=== PATIENT | male | born 1965 | race Caucasian/White ===

== ENCOUNTER 2024-11-18 13:52 | Outpatient (AMB) | payer BC, SELFPAY ==
--- NOTE | 2024-11-18 14:18 | HO.NEPHOV_ITS ---
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 He has high BMI. He has been started on Mounjaro recently. His blood sugar is better with medication adjustment. He does not check his blood sugar and blood pressure very regularly. He has gained weight. He has history of drug use in the past but has not had any since 2014. He is on Jardiance.He denies taking excessive nonsteroidal anti-inflammatories. He is on ARB. He used to take NSAIDs . He does not have any flank pain, hematuria, froth or foam in the urine, epistaxis, orthostatic symptoms, nausea, vomiting, diarrhea, shortness of breath, paroxysmal nocturnal dyspnea, orthopnea, recurrent sinusitis, joint swellings or any other systemic symptoms. His recent serum creatinine has been 1.18 [facility] Medical History (Updated 11/18/24 @ 14:48 by Melvin Greenberg MD) Gaudencio's thyroiditis Fatty liver Liver abscess Portal vein thrombosis Tubular adenoma Abdominal aortic ectasia Abnormal LFTs (liver function tests) ROGER (obstructive sleep apnea) Hypertension Diabetes mellitus Surgical History (Updated 11/18/24 @ 14:20 by Latanya Wolf MA) History of appendectomy Family History (Updated 11/18/24 @ 14:19 by Latanya Wolf MA) Father Diabetes Dementia Social History (Updated 11/18/24 @ 14:19 by Latanya Wolf MA) Alcohol intake: former Patient Tobacco Use Status: Former Tobacco user Review of Systems Const All systems reviewed & are unremarkable except as noted in HPI and below Physical Exam Vital Signs: Last Vital Signs Pulse 84 11/18/24 14:21 BP 114/68 11/18/24 14:21 Pulse Ox 93 11/18/24 14:21 Oxygen Delivery Method Room Air 11/18/24 14:21 BMI result Body Mass Index 53.5 Const General: comfortable and no acute distress Orientation/consciousness: patient oriented x3 HEENT Head: Yes normocephalic Mouth: Normal oral and palatal mucosa present Eyes EOM: EOMs intact bilaterally Neck Neck: Yes supple Resp Auscultation: clear to auscultation bilaterally Cardio Jugular venous distension: no JVD Rate: regular rate GI Palpation (GI): Soft to palpation Auscultation: normal bowel sounds General: Yes no CVA tenderness Back/Spine/Pelvis Back: no CVA tenderness Skin General skin exam: no rashes or lesions noted Neuro General: patient oriented x3 and moves all extremities Extrem General: Yes no pedal edema Results Reviewed Nephrology Results: Sodium 135 mmol/L (135-145) 11/18/24 Potassium 4.3 mmol/L (3.3-5.1) 11/18/24 Chloride 97 mmol/L (96-108) 11/18/24 Carbon Dioxide 30 mmol/L (22-29) H 11/18/24 BUN 21 mg/dL (9-16) H 11/18/24 Creatinine 0.95 mg/dL (0.5-1.4) 11/18/24 Calcium 9.7 mg/dL (8.4-10.2) 11/18/24 Urine Creatinine 75.20 mg/dL 11/18/24 Protein/Creatinin Ratio 0.20 (<0.2) 11/18/24 Assessment & Plan Assessment & Plan (1) Hypertension: Code(s): I10 - Essential (primary) hypertension Category: Medical Qualifiers: Hypertension type: primary hypertension Qualified Code(s): I10 - Essential (primary) hypertension (2) CKD stage 3a, GFR 45-59 ml/min: Code(s): N18.31 - Chronic kidney disease, stage 3a Category: Medical (3) Diabetic nephropathy: Code(s): E11.21 - Type 2 diabetes mellitus with diabetic nephropathy Category: Medical Qualifiers: Diabetes mellitus type: type 2 Qualified Code(s): E11.21 - Type 2 diabetes mellitus with diabetic nephropathy Plan Kodi has CKD stage 3 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 Differential diagnosis includes includes secondary focal and segmental glomerulosclerosis. His urine output is good. He is on ARB and SGLT2 inhibitor. I ordered extensive workup. He may need a renal biopsy if he has significant proteinuria . I encouraged him to avoid nonsteroidal anti-inflammatories and maintain good hydration. I did not make any medication changes. Further management is pending evolving data. Answered all questions and follow-up appointment was given. Orders: Orders Creatinine 11/18/24 N18. - Chronic kidney disease, stage 3a, E11.21 - Type 2 diabetes mellitus with diabetic nephropathy, I10 - Essential (primary) hypertension Blood Urea Nitrogen 11/18/24 N18.31 - Chronic kidney disease, stage 3a, E11.21 - Type 2 diabetes mellitus with diabetic nephropathy, I10 - Essential (primary) hypertension Anti DNA DS Antibody 11/18/24. - Chronic kidney disease, stage 3a, E11.21 - Type 2 diabetes mellitus with diabetic nephropathy, I10 - Essential (primary) hypertension Myeloperoxidase Antibody 11/18/24. - Chronic kidney disease, stage 3a, E11.21 - Type 2 diabetes mellitus with diabetic nephropathy, I10 - Essential (primary) hypertension Complement C3 11/18/24. - Chronic kidney disease, stage 3a, E11.21 - Type 2 diabetes mellitus with diabetic nephropathy, I10 - Essential (primary) hypertension Immunofixation Pnl, Serum 11/18/24. - Chronic kidney disease, stage 3a, E11.21 - Type 2 diabetes mellitus with diabetic nephropathy, I10 - Essential (primary) hypertension Electrolytes 11/18/24. - Chronic kidney disease, stage 3a, E11.21 - Type 2 diabetes mellitus with diabetic nephropathy, I10 - Essential (primary) hypertension Calcium 11/18/24. - Chronic kidney disease, stage 3a, E11.21 - Type 2 diabetes mellitus with diabetic nephropathy, I10 - Essential (primary) hypertension Hepatitis B Surface Antibody 11/18/24. - Chronic kidney disease, stage 3a , E11.21 - Type 2 diabetes mellitus with diabetic nephropathy, I10 - Essential (primary) hypertension Hepatitis B Surface Antigen 11/18/24. - Chronic kidney disease, stage 3a, E11.21 - Type 2 diabetes mellitus with diabetic nephropathy, I10 - Essential (primary) hypertension Hepatitis B Core Antibody 11/18/24. - Chronic kidney disease, stage 3a, E11.21 - Type 2 diabetes mellitus with diabetic nephropathy, I10 - Essential (primary) hypertension Proteinase 3 PR3 Antibodies 11/18/24. - Chronic kidney disease, stage 3a, E11.21 - Type 2 diabetes mellitus with diabetic nephropathy, I10 - Essential (primary) hypertension Complement C4 11/18/24 N18.31 - Chronic kidney disease, stage 3a, E11. - Type 2 diabetes mellitus with diabetic nephropathy, I10 - Essential (primary) hypertension Phospholipase A2 Receptor Pnl 11/18/24 N18.31 - Chronic kidney disease, stage 3a, E11.21 - Type 2 diabetes mellitus with diabetic nephropathy, I10 - Essential (primary) hypertension Immunofixation, Random Urine 11/18/24 N18.31 - Chronic kidney disease, stage 3a, E11. - Type 2 diabetes mellitus with diabetic nephropathy, I10 - Essential (primary) hypertension Protein Creatinine Ratio, Ur 11/18/24 N18.31 - Chronic kidney disease, stage 3a, E11. - Type 2 diabetes mellitus with diabetic nephropathy, I10 - Essential (primary) hypertension Coding Level of Care Code New Pt Level 4 (90089) Diagnoses Primary hypertension I10 Hypertension type: primary hypertension CKD stage 3a, GFR 45-59 ml/min N18.31 Diabetic nephropathy associated with type 2 diabetes mellitus Diabetes mellitus type: type 2
[2024-11-18 14:21] VITALS: BP 114/68; PULSE 84; O2SAT 93; BMI 53.5
--- OUTSIDE RECORDS SUMMARY | 2024-11-18 16:57 | XMS_ITS | Encounter Summary ---
Author Organization [facility] Address [address] [place] [address] Care Team Providers Care Pulp Roller Name Role Phone Ramiro Horton DO Primary Care Provider [phone] Encounter Details Date Type Department Care Team (Late st Contact Info) Description 08/16/2024 Lab Requisition [facility] - Main Lab [address] [place] [address] [address] [place] [id number] Social History Tobacco Use Types Packs/Day Years Used Date Smoking Tobacco: Never Assessed Sex and Gender Information Value Date Recorded Sex Assigned at Not on file Legal Sex Male 11:01 AM EST Gender Identity Not on file Sexual Orientation Not on file documented as of this encounter Plan of Treatment Not on file documented as of this encounter Visit Diagnoses Not on filedocumented in this encounter Care Teams Pulp Roller Relationship Specialty Start Date End Date Ramiro Horton DO [address] [place] [address] PCP - General Internal Medicine 05/27/15 documented as of this encounter
--- OUTSIDE RECORDS SUMMARY | 2024-11-18 16:57 | XMS_ITS | Continuity of Care Document ---
Author Organization [facility] Address [address] [facility] [facility] [address] [place] [address] Phone [phone] Social History Type Date Description Comments Sex Unknown Medical Devices Description No Information Available Encounters Description No Information Available Assessments Description No Information Available Plan of Treatment No Information Available Functional Status Description No Information Available Mental Status Description No Information Available Referrals Description No Information Available
--- OUTSIDE RECORDS SUMMARY | 2024-11-18 16:57 | XMS_ITS | Clinical Summary ---
Author Organization [address] Address [address] [place] [phone] Phone Care Team Providers Care Retail Customer Service Specialist Name Role Phone Ramiro Horton DO Primary Care Provider [phone] Encounters Date Type Department Care Team Description 10/29/2024 11:22 AM EDT - 10/29/2024 11:59 PM EDT Hospital Encounter [facility] [address] [place] [address] Pain Discharge Disposition: Home or Self Care 10/29/2024 10:56 AM EDT - 10/29/2024 11:59 PM EDT Hospital Encounter [facility] [address] [place] [address] Pain Discharge Disposition: Home or Self Care from Last 3 Months Social History Tobacco Use Types Packs/Day Years Used Date Smoking Tobacco: Never Assessed Sex and Gender Information Value Date Recorded Sex Assigned at Not on file Legal Sex Male 11:01 AM EST Gender Identity Not on file Sexual Orientation Not on file Last Filed Vital Signs Vital Sign Reading Time Taken Comments Blood Pressure 130/81 02/20/2022 11:08 AM EDT Pulse - - Temperature - - Respiratory Rate - - Oxygen Saturation - - Inhaled Oxygen Concentration - - Weight 168 kg (370 lb) 02/20/2022 11:08 AM EDT Height 170.2 cm (5' 7 ) 02/20/2022 11:08 AM EDT Body Mass Index 57.95 02/20/2022 11:08 AM EDT Plan of Treatment Health Maintenance Due Date Last Done Comments Diabetes: Annual Foot Exam 1976 Diabetes: Annual Retina Eye Exam 1976 DTaP,Tdap,and Td Vaccines (1 - Tdap) 1985 Hepatitis B Vaccines (1 of 3 - 19+ 3-dose series) 1985 Pneumococcal Vaccine: 50+ Years (1 of 2 - PCV) 1985 Pneumococcal Vaccine: Pediatrics (0 to 5 Years) and At-Risk Patients (6 to 64 Years) (1 of 2 - PCV) 1985 Zoster Vaccines (1 of 2) 2016 Colorectal Cancer Screening: Colonoscopy 07/02/2022 Depression Screening 07/02/2022 HIV Screening 07/02/2022 Hepatitis C Screening 07/02/2022 Social Influencers of Health Screening 07/02/2022 COVID-19 Vaccine (3 - 2023-2 5 season) 2024 01/03/2021, 12/05/2020 Influenza Vaccine (Season Ended) 2025 Diabetes: Blood Sugar Contro l Test (HGBA1C) 05/10/2025 11/08/2024, 07/16/2024 Diabetes: Annual Urine Albumin-Creatinine Ratio (uACR) 11/08/2025 11/08/2024 Diabetes: Annual GFR (Glomerular Filtration Rate) 11/08/2025 11/08/2024, 07/16/2024 Hypertension/CHF/CAD Annual BMP Blood Test 11/08/2025 11/08/2024, 07/16/2024 Cholesterol Screening (Lipid Panel) 11/08/2029 11/08/2024 HIB Vaccines Aged Out No longer eligi ble based on patient's age to complete this topic HPV Vaccines Aged Out No longer eligi ble based on patient's age to complete this topic Hepatitis A Vaccines Aged Out No long er eligible based on patient's age to complete this topic IPV Vaccines Aged Out No longer eligi ble based on patient's age to complete this topic MMR Vaccines Aged Out No longer eligi ble based on patient's age to complete this topic Meningococcal ACWY Vaccine Aged Out N o longer eligible based on patient's age to complete this topic Meningococcal B Vaccine Aged Out No l onger eligible based on patient's age to complete this topic RSV Immunization Patients Under 20 months Aged Out No longer eligible b ased on patient's age to complete this topic Varicella Vaccines Aged Out No longer eligible based on patient's age to complete this topic Procedures Procedure Name Priority Date/Time Associated Diagnosis Comments CBC WITH AUTO DIFFERENTIAL Routine 11/08/2024 9:38 AM EDT Laboratory tests ordered as part of a complete physical exam (CPE) DM (diabetes mellitus) ([facility] V24, [facility] V28) Proteinuria HTN (hypertension) Fatty liver Gaudencio encephalopathy Hx of tobacco use, presenting hazards to health BMI 45.0-49.9, adult ([facility] V24, [facility] V28) MICROALBUMIN CREATININE URINE RATIO Routine 11/08/2024 9:38 AM EDT Laboratory tests ordered as part of a complete physical exam (CPE) DM (diabetes mellitus) ([facility] V24, [facility] V28) Proteinuria HTN (hypertension) Fatty liver Gaudencio encephalopathy Hx of tobacco use, presenting hazards to health BMI 45.0-49.9, adult ([facility] V24, [facility] V28) HEMOGLOBIN A1C Routine 11/08/2024 9:38 AM EDT Laboratory tests ordered as part of a complete physical exam (CPE) DM (diabetes mellitus) ([facility] V24, [facility] V28) Proteinuria HTN (hypertension) Fatty liver Gaudencio encephalopathy Hx of tobacco use, presenting hazards to health BMI 45.0-49.9, adult ([facility] V24, [facility] V28) CBC AND DIFFERENTIAL Routine 11/08/2024 9:38 AM EDT Laboratory tests ordered as part of a complete physical exam (CPE) DM (diabetes mellitus) ([facility] V24, [facility] V28) Proteinuria HTN (hypertension) Fatty liver Gaudencio encephalopathy Hx of tobacco use, presenting hazards to health BMI 45.0-49.9, adult ([facility] V24, [facility] V28) THYROID STIMULATING HORMONE Routine 11/08/2024 9:38 AM EDT Laboratory tests ordered as part of a complete physical exam (CPE) DM (diabetes mellitus) ([facility] V24, [facility] V28) Proteinuria HTN (hypertension) Fatty liver Gaudencio encephalopathy Hx of tobacco use, presenting hazards to health BMI 45.0-49.9, adult ([facility] V24, [facility] V28) PROSTATE SPECIFIC ANTIGEN SCREEN Routine 11/08/2024 9:38 AM EDT Laboratory tests ordered as part of a complete physical exam (CPE) DM (diabetes mellitus) ([facility] V24, [facility] V28) Proteinuria HTN (hypertension) Fatty liver Gaudencio encephalopathy Hx of tobacco use, presenting hazards to health BMI 45.0-49.9, adult ([facility] V24, [facility] V28) CREATINE KINASE Routine 11/08/2024 9:38 AM EDT Laboratory tests ordered as part of a complete physical exam (CPE) DM (diabetes mellitus) ([facility] V24, [facility] V28) Proteinuria HTN (hypertension) Fatty liver Gaudencio encephalopathy Hx of tobacco use, presenting hazards to health BMI 45.0-49.9, adult ([facility] V24, [facility] V28) ASPARTATE AMINOTRANSFERASE Routine 11/08/2024 9:38 AM EDT Laboratory tests ordered as part of a complete physical exam (CPE) DM (diabetes mellitus) ([facility] V24, [facility] V28) Proteinuria HTN (hypertension) Fatty liver Gaudencio encephalopathy Hx of tobacco use, presenting hazards to health BMI 45.0-49.9, adult ([facility] V24, [facility] V28) BASIC METABOLIC PANEL Routine 11/08/2024 9:38 AM EDT Laboratory tests ordered as part of a complete physical exam (CPE) DM (diabetes mellitus) ([facility] V24, [facility] V28) Proteinuria HTN (hypertension) Fatty liver Gaudencio encephalopathy Hx of tobacco use, presenting hazards to health BMI 45.0-49.9, adult ([facility] V24, [facility] V28) ALANINE AMINOTRANSFERASE Routine 9:38 AM EDT Laboratory tests ordered as part of a complete physical exam (CPE) DM (diabetes mellitus) ([facility] V24, [facility] V28) Proteinuria HTN (hypertension) Fatty liver Gaudencio encephalopathy Hx of tobacco use, presenting hazards to health BMI 45.0-49.9, adult ([facility] V24, [facility] V28) LIPID PANEL WITH REFLEX TO DIRECT LDL Routine 11/08/2024 9:38 AM EDT Laboratory tests ordered as part of a complete physical exam (CPE) DM (diabetes mellitus) ([facility] V24, [facility] V28) Proteinuria HTN (hypertension) Fatty liver Gaudencio encephalopathy Hx of tobacco use, presenting hazards to health BMI 45.0-49.9, adult ([facility] V24, [facility] V28) XR SHOULDER 2+ VIEWS LEFT Routine 10/29/2024 11:37 AM EDT Pain XR CHEST 2 VIEWS Routine 10/29/2024 11:3 7 AM EDT Pain from Last 3 Months Results * Prostate specific antigen screen (11/08/2024 9:38 AM EDT) PSA 0.86 0.00 - 4.00 ng/mL LAB CHEMISTRY METHOD 11/08/2024 2:51 PM EDT [facility] Blood Venous blood specimen / Unknown Venipuncture / Unknown 11/08/2024 9:38 AM EDT 11/08/2024 9:38 AM EDT Narrative [facility] - 11/08/2024 2:51 PM EDT The Siemens Advia Centaur Chemiluminescent Immunoassay is used. Results obtained with different assay methods or kits cannot be used interchangeably. Results cannot be interpreted as absolute evidence of the presence or absence of malignant disease. us [facility] LAB BLOOD ORDERABLES Final Resul t [facility] [address] [place] [address], * (ABNORMAL) Lipid panel with reflex to direct LDL (11/08/2024 9:38 AM EDT) Cholesterol 126 0 - 200 mg/dL LAB CHEMISTRY METHOD 11/08/2024 2:12 PM EDT [facility] Triglycerides 110 0 - 150 mg/dL LAB CHEMISTRY METHOD 11/08/2024 2:12 PM EDT [facility] HDL 38(L) >=40 mg/dL LAB CHEMISTRY METHOD 11/08/2024 2:12 PM EDT [facility] LDL Calculated 66 0 - 100 mg/dL LAB CHEMISTRY METHOD 11/08/2024 2:12 PM EDT [facility] VLDL Cholesterol Norberto 22 mg/dL LAB CHEMISTRY METHOD 11/08/2024 2:12 PM EDT [facility] Non HDL Chol. (LDL+VLDL) 88 <145 mg/dL LAB CHEMISTRY METHOD 11/08/2024 2:12 PM EDT [facility] Chol/HDL Ratio 3.3 0.0 - 4.4 LAB CHEMISTRY METHOD 11/08/2024 2:12 PM EDT [facility] Blood Venous blood specimen / Unknown Venipuncture / Unknown 11/08/2024 9:38 AM EDT 11/08/2024 9:38 AM EDT [facility] LAB BLOOD ORDERABLES Final Resul t [facility] [address] [place] [address], * (ABNORMAL) CBC auto differential (11/08/2024 9:38 AM EDT) WBC 13.5(H) 4.8 - 10.8 K/mcL LAB HEMETOLOGY METHOD 11/08/2024 11:40 AM EDT [facility] RBC 5.00 4.50 - 5.50 M/mcL LAB HEMETOLOGY METHOD 11/08/2024 11:40 AM EDT [facility] Hemoglobin 13.5 13.5 - 17.5 g/dL LAB HEMETOLOGY METHOD 11/08/2024 11:40 AM [facility] Hematocrit 41.9(L) 42.0 - 54.0 % LAB HEMETOLOGY METHOD 11/08/2024 11:40 AM [facility] MCV 84.1 79.0 - 98.0 FL LAB HEMETOLOGY METHOD 11/08/2024 11:40 AM [facility] MCH 27.1 27.0 - 32.0 pcg LAB HEMETOLOGY METHOD 11/08/2024 11:40 AM [facility] MCHC 32.2 32.0 - 37.0 g/dL LAB HEMETOLOGY METHOD 11/08/2024 11:40 AM [facility] RDW 13.8 11.0 - 15.0 % LAB HEMETOLOGY METHOD 11/08/2024 11:40 AM [facility] Platelets 406(H) 130 - 400 K/mcL LAB HEMETOLOGY METHOD 11/08/2024 11:40 AM [facility] MPV 9.2 7.0 - 11.0 FL LAB HEMETOLOGY METHOD 11/08/2024 11:40 AM [facility] NRBC 0.0 <1.0 % LAB HEMETOLOGY METHOD 11/08/2024 11:40 AM [facility] NRBC Absolute 0.00 <0.10 K/mcL LAB HEMETOLOGY METHOD 11/08/2024 11:40 AM [facility] Neutrophils Relative 73.8 % LAB HEMETOLOGY METHOD 11/08/2024 11:40 AM [facility] Lymphocytes Relative 17.6 % LAB HEMETOLOGY METHOD 11/08/2024 11:40 AM [facility] Monocytes Relative 5.9 % LAB HEMETOLOGY METHOD 11/08/2024 11:40 AM [facility] Eosinophils Relative 1.3 % LAB HEMETOLOGY METHOD 11/08/2024 11:40 AM EDT [facility] Basophils Relative 0.5 % LAB HEMETOLOGY METHOD 11/08/2024 11:40 AM T [facility] Immature Granulocytes Relative 0.9 % LAB HEMETOLOGY METHOD 11/08/2024 11:40 AM EDT [facility] Neutrophils Absolute 9.96(H) 1.50 - 7.00 K/mcL LAB HEMETOLOGY METHOD 11/08/2024 11:40 AM EDT [facility] Lymphocytes Absolute 2.38 1.00 - 5.00 K/mcL LAB HEMETOLOGY METHOD 11/08/2024 11:40 AM [facility] Monocytes Absolute 0.79 0.20 - 1.00 K/mcL LAB HEMETOLOGY METHOD 11/08/2024 11:40 AM EDT [facility] Eosinophils Absolute 0.18 0.00 - 0.50 K/mcL LAB HEMETOLOGY METHOD 11/08/2024 11:40 AM EDT [facility] Basophils Absolute 0.07 0.00 - 0.20 K/mcL LAB HEMETOLOGY METHOD 11/08/2024 11:40 AM [facility] Immature Granulocytes Absolute 0.12(H) 0.00 - 0.03 K/mcL LAB HEMETOLOGY METHOD 11/08/2024 11:40 AM EDT [facility] Blood Venous blood specimen / Unknown Venipuncture / Unknown 11/08/2024 9:38 AM EDT 11/08/2024 9:38 AM EDT us [facility] LAB BLOOD ORDERABLES Final Resul t [facility] [address] [place] [address], * (ABNORMAL) Microalbumin creatinine urine ratio (11/08/2024 9:38 AM EDT) [facility] Creatinine, Urine 146.0 mg/dL LAB CHEMISTRY METHOD 11/08/2024 1:48 PM EDT [facility] Microalb, Ur 111.0(H) 0.0 - 29.0 mg/L LAB CHEMISTRY METHOD 11/08/2024 1:48 PM EDT [facility] Microalb/Crea t Ratio 76(H) <30 mg/g creat LAB CHEMISTRY METHOD 11/08/2024 1:48 PM EDT [facility] Urine Urine specimen obtained by clean catch procedure / Unknown Non-blood Collection / Unknown 11/08/2024 9:38 AM EDT 11/08/2024 9:38 AM EDT [facility] LAB URINE ORDERABLES Final Resul t Performing Organization Address City/[facility]/ZIP Co de Phone Number [facility] [address] [place] [address], [place] [phone] * Alanine aminotransferase (11/08/2024 9:38 AM EDT) [facility] ALT (SGPT) 59 10 - 60 unit/L LAB CHEMISTRY METHOD 11/08/2024 1:49 PM EDT [facility] Blood Venous blood specimen / Unknown Venipuncture / Unknown 11/08/2024 9:38 AM EDT 11/08/2024 9:38 AM EDT [email or web address] LAB BLOOD ORDERABLES Final Resul t [facility] [address] [place] [address], [place] [phone] * Aspartate aminotransferase (11/08/2024 9:38 AM EDT) [facility] AST (SGOT) 23 10 - 42 unit/L LAB CHEMISTRY METHOD 11/08/2024 2:12 PM EDT [facility] Blood Venous blood specimen / Unknown Venipuncture / Unknown 11/08/2024 9:38 AM EDT 11/08/2024 9:38 AM EDT [facility] LAB BLOOD ORDERABLES Final Resul t Performing Organization Address [facility]/ZIP Co de Phone Number [facility] [address] [place] [address], [place] [phone] * Thyroid stimulating hormone (11/08/2024 9:38 AM EDT) TSH 3.26 0.40 - 4.00 mcIU/mL LAB CHEMISTRY METHOD 11/08/2024 2:51 PM EDT [facility] Blood Venous blood specimen / Unknown Venipuncture / Unknown 11/08/2024 9:38 AM EDT 11/08/2024 9:38 AM EDT [facility] LAB BLOOD ORDERABLES Final Resul t Performing Organization Address [facility] de Phone Number [facility] [address] [place] [address], [place] [phone] * (ABNORMAL) Hemoglobin A1c (11/08/2024 9:38 AM EDT) Hemoglobin A1C 9.3(H) <6.5 % LAB CHEMISTRY METHOD 11/08/2024 2:31 PM EDT [facility] Mean Bld Glu Estim. 220 mg/dL LAB CHEMISTRY METHOD 11/08/2024 2:31 PM EDT [facility] Blood Venous blood specimen / Unknown Venipuncture / Unknown 11/08/2024 9:38 AM EDT 11/08/2024 9:38 AM EDT [facility] [email or web address] LAB BLOOD ORDERABLES Final Resul t Performing Organization Address [facility]/ZIP Co de Phone Number [facility] [address] [place] [address], [place] [phone] * Creatine kinase (11/08/2024 9:38 AM EDT) Total CK 130 22 - 269 unit/L LAB CHEMISTRY METHOD 11/08/2024 2:12 PM EDT [facility] Blood Venous blood specimen / Unknown Venipuncture / Unknown 11/08/2024 9:38 AM EDT 11/08/2024 9:38 AM EDT [facility] LAB BLOOD ORDERABLES Final Resul t Performing Organization Address [facility] Co de Phone Number [facility] [address] [place] [address], [place] [phone] * (ABNORMAL) Basic metabolic panel (11/08/2024 9:38 AM EDT) [facility] Sodium 134 133 - 145 mmol/L LAB CHEMISTRY METHOD 11/08/2024 2:12 PM [facility] Potassium 4.1 3.5 - 5.5 mmol/L LAB CHEMISTRY METHOD 11/08/2024 2:12 PM [facility] Chloride 98 96 - 110 mmol/L LAB CHEMISTRY METHOD 11/08/2024 2:12 PM [facility] CO2 23 21 - 32 mmol/L LAB CHEMISTRY METHOD 11/08/2024 2:12 PM [facility] Anion Gap 13(H) 3 - 11 LAB CHEMISTRY METHOD 11/08/2024 2:12 PM [facility] Glucose 143(H) 70 - 100 mg/dL LAB CHEMISTRY METHOD 11/08/2024 2:12 PM [facility] BUN 25 5 - 25 mg/dL LAB CHEMISTRY METHOD 11/08/2024 2:12 PM [facility] Creatinine 1.01 0.70 - 1.30 mg/dL LAB CHEMISTRY METHOD 11/08/2024 2:12 PM EDT [facility] eGFR 86 >=60 mL/min/1. 73m2 LAB CHEMISTRY METHOD 11/08/2024 2:12 PM EDT [facility] Comment:Calculation based on the??Chronic Kidney Disease Epidemiology Collaboration (CKD-EPI) equation refit??without adjustment for race. BUN/Creatinine Ratio 24.8 LAB CHEMISTRY METHOD 11/08/2024 2:12 PM EDT [facility] Calcium 9.4 8.5 - 10.5 mg/dL LAB CHEMISTRY METHOD 11/08/2024 2:12 PM EDT [facility] Blood Venous blood specimen / Unknown Venipuncture / Unknown 11/08/2024 9:38 AM EDT 11/08/2024 9:38 AM EDT [facility] LAB BLOOD ORDERABLES Final Resul t [facility] [address] [place] [address], * XR Shoulder 2+ Views Left (10/29/2024 11:37 AM EDT) Anatomical Region Laterality Modality Upper Extremities, Shoulder Left Radi ographic Imaging 10/29/2024 11:5 6 AM EDT Impressions 10/29/2024 11:57 AM EDT No acute findings. ??Mild osteoarthritis of the acromioclavicular joint. Code 29270 -------- FINAL REPORT -------- Dictated By: Marcos Marquez Dictated Date: 10/29/2024 11:56 ET Assigned Physician: Marcos Marquez Reviewed and Electronically Signed By: Marcos Marquez Signed Date: 10/29/2024 11:57 ET Workstation ID: [id number] Transcribed By: Self Edit Transcribed Date: 10/29/2024 11:56 ET Narrative 10/29/2024 11:57 AM EDT HISTORY: The patient is a 59-year-old male with left shoulder pain. ??No history of trauma is provided. FINDINGS: AP, left posterior oblique, and transscapular views of the left shoulder are obtained. ??The study demonstrates no fracture or dislocation. ??There is narrowing of the acromioclavicular joint with marginal osteophytes consistent with mild osteoarthritis. ??There is no arthritic change of the glenohumeral joint. ??No soft tissue and mildly is seen. Procedure Note Marcos Marquez MD - 10/29/2024 HISTORY: The patient is a 59-year-old male with left shoulder pain. Nohistory of trauma is provided. FINDINGS: AP, left posterior oblique, and transscapular views of the leftshoulder are obtained. The study demonstrates no fracture or dislocation.There is narrowing of the acromioclavicular joint with marginalosteophytes consistent with mild osteoarthritis. There is no arthriticchange of the glenohumeral joint. No soft tissue and mildly is seen. IMPRESSION: No acute findings. Mild osteoarthritis of the acromioclavicular joint. Code 55755 -------- FINAL REPORT -------- Dictated By: Marcos Marquez Dictated Date: 10/29/2024 11:56 ET Assigned Physician: Marcos Marquez Reviewed and Electronically Signed By: Marcos Marquez Signed Date: 10/29/2024 11:57 ET Workstation ID: [id number] Transcribed By: Self Edit Transcribed Date: 10/29/2024 11:56 ET us Ramiro Horton DO IMG XR PROCEDURES Final Resul t * XR Chest 2 Views (10/29/2024 11:37 AM EDT) Anatomical Region Laterality Modality Body Radiographic [place] ging 10/29/2024 11:5 7 AM EDT Impressions 10/29/2024 11:58 AM EDT No acute pulmonary disease. Code 49923 -------- FINAL REPORT -------- Dictated By: Marcos Marquez Dictated Date: 10/29/2024 11:57 ET Assigned Physician: Marcos Marquez Reviewed and Electronically Signed By: Marcos Marquez Signed Date: 10/29/2024 11:58 ET Workstation ID: [id number] Transcribed By: Self Edit Transcribed Date: 10/29/2024 11:57 ET Narrative 10/29/2024 11:58 AM EDT HISTORY: The patient is a 59-year-old male with persistent cough. FINDINGS: PA and lateral radiographs of the chest demonstrate mild degenerative changes of the thoracic spine. ??The cardiac silhouette is within normal limits. ??The aortic knob is calcified. ??The lungs and costophrenic angles are clear. ??Interstitial prominence seen on the prior study of 05/27/2015 has resolved. Procedure Note Marcos Marquez MD - 10/29/2024 HISTORY: The patient is a 59-year-old male with persistent cough. FINDINGS: PA and lateral radiographs of the chest demonstrate milddegenerative changes of the thoracic spine. The cardiac silhouette iswithin normal limits. The aortic knob is calcified. The lungs andcostophrenic angles are clear. Interstitial prominence seen on the priorstudy of 05/27/2015 has resolved. IMPRESSION: No acute pulmonary disease. Code 63329 -------- FINAL REPORT -------- Dictated By: Marcos Marquez Dictated Date: 10/29/2024 11:57 ET Assigned Physician: Marcos Marquez Reviewed and Electronically Signed By: Marcos Marquez Signed Date: 10/29/2024 11:58 ET Workstation ID: [id number] Transcribed By: Self Edit Transcribed Date: 10/29/2024 11:57 ET us Ramiro Horton DO IMG XR PROCEDURES Final Resul t from Last 3 Months Insurance [facility] Care Teams Retail Customer Service Specialist Relationship Specialty Start Date End Date Ramiro Horton DO [address] [place] [phone] PCP - General Internal Medicine 05/27/15
== END 2024-11-18 14:56 | disposition home or self-care (01) ==
LOC: HO.HKAS 13:53
PROVIDERS: Visit Provider Internal Medicine Nephrology
DX: I10 Essential (primary) hypertension (principal); N18.31 Chronic kidney disease, stage 3a; E11.21 Type 2 diabetes mellitus with diabetic nephropathy
CPT/HCPCS: 99204

== ENCOUNTER 2024-11-18 13:52 | Outpatient (REF) | payer BC, SELFPAY ==
--- OUTSIDE RECORDS SUMMARY | 2024-11-18 17:49 | XMS_ITS | Clinical Summary ---
Author Organization [address] Address [address] [place] [phone] Phone Care Team Providers Care Heat Engineering Teacher Name Role Phone Ramiro Horton DO Primary Care Provider [phone] Encounters Date Type Department Care Team Description 10/29/2024 11:22 AM EDT - 10/29/2024 11:59 PM EDT Hospital Encounter [facility] Xray [address] [place] [address] Pain Discharge Disposition: Home or Self Care 10/29/2024 10:56 AM EDT - 10/29/2024 11:59 PM EDT Hospital Encounter [facility] Xray [address] [place] [address] Pain Discharge Disposition: Home or Self Care [...] complete physical exam (CPE) DM (diabetes mellitus) ([facility] V24, [facility] V28) Proteinuria HTN (hypertension) Fatty liver Gaudencio encephalopathy Hx of tobacco use, presenting hazards to health BMI 45.0-49.9, adult ([facility] V24, [facility] V28) MICROALBUMIN CREATININE URINE RATIO Routine 11/08/2024 9:38 AM EDT Laboratory tests ordered as part of a complete physical exam (CPE) DM (diabetes mellitus) ([facility] V24, [facility] V28) Proteinuria HTN (hypertension) Fatty liver Gaudencio encephalopathy Hx of tobacco use, presenting hazards to health BMI 45.0-49.9, adult ([facility] V24, [facility] V28) HEMOGLOBIN A1C Routine 11/08/2024 9:38 AM EDT Laboratory tests ordered as part of a complete physical exam (CPE) DM (diabetes mellitus) ([facility] V24, [facility] V28) Proteinuria HTN (hypertension) Fatty liver Gaudencio encephalopathy Hx of tobacco use, presenting hazards to health BMI 45.0-49.9, adult ([facility] V24, [facility] V28) CBC AND DIFFERENTIAL Routine 11/08/2024 9:38 AM EDT Laboratory tests ordered as part of a complete physical exam (CPE) DM (diabetes mellitus) ([facility] V24, [facility] V28) Proteinuria HTN (hypertension) Fatty liver Gaudencio encephalopathy Hx of tobacco use, presenting hazards to health BMI 45.0-49.9, adult ([facility] V24, [facility] V28) THYROID STIMULATING HORMONE Routine 11/08/2024 9:38 AM EDT Laboratory tests ordered as part of a complete physical exam (CPE) DM (diabetes mellitus) ([facility] V24, [facility] V28) Proteinuria HTN (hypertension) Fatty liver Gaudencio encephalopathy Hx of tobacco use, presenting hazards to health BMI 45.0-49.9, adult ([facility] V24, [facility] V28) PROSTATE SPECIFIC ANTIGEN SCREEN Routine 11/08/2024 9:38 AM EDT Laboratory tests ordered as part of a complete physical exam (CPE) DM (diabetes mellitus) ([facility] V24, [facility] V28) Proteinuria HTN (hypertension) Fatty liver Gaudencio encephalopathy Hx of tobacco use, presenting hazards to health BMI 45.0-49.9, adult ([facility] V24, [facility] V28) CREATINE KINASE Routine 11/08/2024 9:38 AM EDT Laboratory tests ordered as part of a complete physical exam (CPE) DM (diabetes mellitus) ([facility] V24, [facility] V28) Proteinuria HTN (hypertension) Fatty liver Gaudencio encephalopathy Hx of tobacco use, presenting hazards to health BMI 45.0-49.9, adult ([facility] V24, [facility] V28) ASPARTATE AMINOTRANSFERASE Routine 11/08/2024 9:38 AM EDT Laboratory tests ordered as part of a complete physical exam (CPE) DM (diabetes mellitus) ([facility] V24, [facility] V28) Proteinuria HTN (hypertension) Fatty liver Gaudencio encephalopathy Hx of tobacco use, presenting hazards to health BMI 45.0-49.9, adult ([facility] V24, [facility] V28) BASIC METABOLIC PANEL Routine 11/08/2024 9:38 AM EDT Laboratory tests ordered as part of a complete physical exam (CPE) DM (diabetes mellitus) ([facility] V24, [facility] V28) Proteinuria HTN (hypertension) Fatty liver Gaudencio encephalopathy Hx of tobacco use, presenting hazards to health BMI 45.0-49.9, adult ([facility] V24, [facility] V28) ALANINE AMINOTRANSFERASE Routine 9:38 AM EDT Laboratory tests ordered as part of a complete physical exam (CPE) DM (diabetes mellitus) ([facility] V24, [facility] V28) Proteinuria HTN (hypertension) Fatty liver Gaudencio encephalopathy Hx of tobacco use, presenting hazards to health BMI 45.0-49.9, adult ([facility] V24, [facility] V28) LIPID PANEL WITH REFLEX TO DIRECT LDL Routine 11/08/2024 9:38 AM EDT Laboratory tests ordered as part of a complete physical exam (CPE) DM (diabetes mellitus) ([facility] V24, [facility] V28) Proteinuria HTN (hypertension) Fatty liver Gaudencio encephalopathy Hx of tobacco use, presenting hazards to health BMI 45.0-49.9, adult ([facility] V24, [facility] V28) XR SHOULDER 2+ VIEWS LEFT Routine 10/29/2024 11:37 AM EDT Pain XR CHEST 2 VIEWS Routine 10/29/2024 11:3 7 AM EDT Pain from Last 3 Months Results * Prostate specific antigen screen (11/08/2024 9:38 AM EDT) PSA 0.86 0.00 - 4.00 ng/mL LAB CHEMISTRY METHOD 11/08/2024 2:51 PM EDT [facility] Blood Venous blood specimen / Unknown Venipuncture / Unknown 11/08/2024 9:38 AM EDT 11/08/2024 9:38 AM EDT Narrative [facility] - 11/08/2024 2:51 PM EDT The Siemens Advia Centaur Chemiluminescent Immunoassay is used. Results obtained with different assay methods or kits cannot be used interchangeably. Results cannot be interpreted as absolute evidence of the presence or absence of malignant disease. us [facility] LAB BLOOD ORDERABLES Final Resul t [facility] [address] [place] [address], * (ABNORMAL) Lipid panel with reflex to direct LDL (11/08/2024 9:38 AM EDT) Cholesterol 126 0 - 200 mg/dL LAB CHEMISTRY METHOD 11/08/2024 2:12 PM EDT [facility] Triglycerides 110 0 - 150 mg/dL LAB CHEMISTRY METHOD 11/08/2024 2:12 PM EDT [facility] HDL 38(L) >=40 mg/dL LAB CHEMISTRY METHOD 11/08/2024 2:12 PM EDT [facility] LDL Calculated 66 0 - 100 mg/dL LAB CHEMISTRY METHOD 11/08/2024 2:12 PM EDT [facility] VLDL Cholesterol Norberto 22 mg/dL LAB CHEMISTRY METHOD 11/08/2024 2:12 PM EDT [facility] Non HDL Chol. (LDL+VLDL) 88 <145 mg/dL LAB CHEMISTRY METHOD 11/08/2024 2:12 PM EDT [facility] Chol/HDL Ratio 3.3 0.0 - 4.4 LAB CHEMISTRY METHOD 11/08/2024 2:12 PM EDT [facility] Blood Venous blood specimen / Unknown Venipuncture / Unknown 11/08/2024 9:38 AM EDT 11/08/2024 9:38 AM EDT [facility] LAB BLOOD ORDERABLES Final Resul t [facility] [address] [place] [address], * (ABNORMAL) CBC auto differential (11/08/2024 9:38 AM EDT) WBC 13.5(H) 4.8 - 10.8 K/mcL LAB HEMETOLOGY METHOD 11/08/2024 11:40 AM EDT [facility] RBC 5.00 4.50 - 5.50 M/mcL LAB HEMETOLOGY METHOD 11/08/2024 11:40 AM EDT [facility] Hemoglobin 13.5 13.5 - 17.5 g/dL LAB HEMETOLOGY METHOD 11/08/2024 11:40 AM [facility] Hematocrit 41.9(L) 42.0 - 54.0 % LAB HEMETOLOGY METHOD 11/08/2024 11:40 AM [facility] MCV 84.1 79.0 - 98.0 FL LAB HEMETOLOGY METHOD 11/08/2024 11:40 AM [facility] MCH 27.1 27.0 - 32.0 pcg LAB HEMETOLOGY METHOD 11/08/2024 11:40 AM [facility] MCHC 32.2 32.0 - 37.0 g/dL LAB HEMETOLOGY METHOD 11/08/2024 11:40 AM [facility] RDW 13.8 11.0 - 15.0 % LAB HEMETOLOGY METHOD 11/08/2024 11:40 AM [facility] Platelets 406(H) 130 - 400 K/mcL LAB HEMETOLOGY METHOD 11/08/2024 11:40 AM [facility] MPV 9.2 7.0 - 11.0 FL LAB HEMETOLOGY METHOD 11/08/2024 11:40 AM [facility] NRBC 0.0 <1.0 % LAB HEMETOLOGY METHOD 11/08/2024 11:40 AM [facility] NRBC Absolute 0.00 <0.10 K/mcL LAB HEMETOLOGY METHOD 11/08/2024 11:40 AM [facility] Neutrophils Relative 73.8 % LAB HEMETOLOGY METHOD 11/08/2024 11:40 AM [facility] Lymphocytes Relative 17.6 % LAB HEMETOLOGY METHOD 11/08/2024 11:40 AM [facility] Monocytes Relative 5.9 % LAB HEMETOLOGY METHOD 11/08/2024 11:40 AM [facility] Eosinophils Relative 1.3 % LAB HEMETOLOGY METHOD 11/08/2024 11:40 AM EDT [facility] Basophils Relative 0.5 % LAB HEMETOLOGY METHOD 11/08/2024 11:40 AM T [facility] Immature Granulocytes Relative 0.9 % LAB HEMETOLOGY METHOD 11/08/2024 11:40 AM EDT [facility] Neutrophils Absolute 9.96(H) 1.50 - 7.00 K/mcL LAB HEMETOLOGY METHOD 11/08/2024 11:40 AM EDT [facility] Lymphocytes Absolute 2.38 1.00 - 5.00 K/mcL LAB HEMETOLOGY METHOD 11/08/2024 11:40 AM [facility] Monocytes Absolute 0.79 0.20 - 1.00 K/mcL LAB HEMETOLOGY METHOD 11/08/2024 11:40 AM EDT [facility] Eosinophils Absolute 0.18 0.00 - 0.50 K/mcL LAB HEMETOLOGY METHOD 11/08/2024 11:40 AM EDT [facility] Basophils Absolute 0.07 0.00 - 0.20 K/mcL LAB HEMETOLOGY METHOD 11/08/2024 11:40 AM [facility] Immature Granulocytes Absolute 0.12(H) 0.00 - 0.03 K/mcL LAB HEMETOLOGY METHOD 11/08/2024 11:40 AM EDT [facility] Blood Venous blood specimen / Unknown Venipuncture / Unknown 11/08/2024 9:38 AM EDT 11/08/2024 9:38 AM EDT us [facility] LAB BLOOD ORDERABLES Final Resul t [facility] [address] [place] [address], * (ABNORMAL) Microalbumin creatinine urine ratio (11/08/2024 9:38 AM EDT) [facility] Creatinine, Urine 146.0 mg/dL LAB CHEMISTRY METHOD 11/08/2024 1:48 PM EDT [facility] Microalb, Ur 111.0(H) 0.0 - 29.0 mg/L LAB CHEMISTRY METHOD 11/08/2024 1:48 PM EDT [facility] Microalb/Crea t Ratio 76(H) <30 mg/g creat LAB CHEMISTRY METHOD 11/08/2024 1:48 PM EDT [facility] Urine Urine specimen obtained by clean catch procedure / Unknown Non-blood Collection / Unknown 11/08/2024 9:38 AM EDT 11/08/2024 9:38 AM EDT [employer] LAB URINE ORDERABLES Final Resul t Performing Organization Address City/[facility]/ZIP Co de Phone Number [facility] [address] [place] [address], [place] [phone] * Alanine aminotransferase (11/08/2024 9:38 AM EDT) [facility] ALT (SGPT) 59 10 - 60 unit/L LAB CHEMISTRY METHOD 11/08/2024 1:49 PM EDT [facility] Blood Venous blood specimen / Unknown Venipuncture / Unknown 11/08/2024 9:38 AM EDT 11/08/2024 9:38 AM EDT [employer] LAB BLOOD ORDERABLES Final Resul t [facility] [address] [place] [address], [place] [phone] * Aspartate aminotransferase (11/08/2024 9:38 AM EDT) [facility] AST (SGOT) 23 10 - 42 unit/L LAB CHEMISTRY METHOD 11/08/2024 2:12 PM EDT [facility] Blood Venous blood specimen / Unknown Venipuncture / Unknown 11/08/2024 9:38 AM EDT 11/08/2024 9:38 AM EDT [facility] LAB BLOOD ORDERABLES Final Resul t Performing Organization Address [facility]/ZIP Co de Phone Number [facility] [address] [place] [address], [place] [phone] * Thyroid stimulating hormone (11/08/2024 9:38 AM EDT) TSH 3.26 0.40 - 4.00 mcIU/mL LAB CHEMISTRY METHOD 11/08/2024 2:51 PM EDT [facility] Blood Venous blood specimen / Unknown Venipuncture / Unknown 11/08/2024 9:38 AM EDT 11/08/2024 9:38 AM EDT [facility] LAB BLOOD ORDERABLES Final Resul t Performing Organization Address [facility] de Phone Number [facility] [address] [place] [address], [place] [phone] * (ABNORMAL) Hemoglobin A1c (11/08/2024 9:38 AM EDT) Hemoglobin A1C 9.3(H) <6.5 % LAB CHEMISTRY METHOD 11/08/2024 2:31 PM EDT [facility] Mean Bld Glu Estim. 220 mg/dL LAB CHEMISTRY METHOD 11/08/2024 2:31 PM EDT [facility] Blood Venous blood specimen / Unknown Venipuncture / Unknown 11/08/2024 9:38 AM EDT 11/08/2024 9:38 AM EDT [facility] [employer] LAB BLOOD ORDERABLES Final Resul t Performing Organization Address [facility]/ZIP Co de Phone Number [facility] [address] [place] [address], [place] [phone] * Creatine kinase (11/08/2024 9:38 AM EDT) Total CK 130 22 - 269 unit/L LAB CHEMISTRY METHOD 11/08/2024 2:12 PM EDT [facility] Blood Venous blood specimen / Unknown Venipuncture / Unknown 11/08/2024 9:38 AM EDT 11/08/2024 9:38 AM EDT [facility] LAB BLOOD ORDERABLES Final Resul t Performing Organization Address [facility]/[employer] Co de Phone Number [facility] [address] [place] [address], [place] [phone] * (ABNORMAL) Basic metabolic panel (11/08/2024 9:38 AM EDT) [facility] Sodium 134 133 - 145 mmol/L LAB CHEMISTRY METHOD 11/08/2024 2:12 PM [facility] Potassium 4.1 3.5 - 5.5 mmol/L LAB CHEMISTRY METHOD 11/08/2024 2:12 PM [facility] Chloride 98 96 - 110 mmol/L LAB CHEMISTRY METHOD 11/08/2024 2:12 PM [facility] CO2 23 21 - 32 mmol/L LAB CHEMISTRY METHOD 11/08/2024 2:12 PM [facility] Anion Gap 13(H) 3 - 11 LAB CHEMISTRY METHOD 11/08/2024 2:12 PM [facility] Glucose 143(H) 70 - 100 mg/dL LAB CHEMISTRY METHOD 11/08/2024 2:12 PM [facility] BUN 25 5 - 25 mg/dL LAB CHEMISTRY METHOD 11/08/2024 2:12 PM [facility] Creatinine 1.01 0.70 - 1.30 mg/dL LAB CHEMISTRY METHOD 11/08/2024 2:12 PM EDT [facility] eGFR 86 >=60 mL/min/1. 73m2 LAB CHEMISTRY METHOD 11/08/2024 2:12 PM EDT [facility] Comment:Calculation based on the??Chronic Kidney Disease Epidemiology Collaboration (CKD-EPI) equation refit??without adjustment for race. BUN/Creatinine Ratio 24.8 LAB CHEMISTRY METHOD 11/08/2024 2:12 PM EDT [facility] Calcium 9.4 8.5 - 10.5 mg/dL LAB CHEMISTRY METHOD 11/08/2024 2:12 PM EDT [facility] Blood Venous blood specimen / Unknown Venipuncture / Unknown 11/08/2024 9:38 AM EDT 11/08/2024 9:38 AM EDT [facility] LAB BLOOD ORDERABLES Final Resul t [facility] [address] [place] [address], * XR Shoulder 2+ Views Left (10/29/2024 11:37 AM EDT) Anatomical Region Laterality Modality Upper Extremities, Shoulder Left Radi ographic Imaging 10/29/2024 11:5 6 AM EDT Impressions 10/29/2024 11:57 AM EDT No acute findings. ??Mild osteoarthritis of the acromioclavicular joint. Code 21875 -------- FINAL REPORT -------- Dictated By: Marcos Marquez Dictated Date: 10/29/2024 11:56 ET Assigned Physician: Marcos Marquez Reviewed and Electronically Signed By: Marcos Marquez Signed Date: 10/29/2024 11:57 ET Workstation ID: [id number] Transcribed By: Self Edit Transcribed Date: 10/29/2024 [...] Mild osteoarthritis of the acromioclavicular joint. Code 98048 -------- FINAL REPORT -------- Dictated By: Marcos Marquez Dictated Date: 10/29/2024 11:56 ET Assigned Physician: Marcos Marquez Reviewed and Electronically Signed By: Marcos Marquez Signed Date: 10/29/2024 11:57 ET Workstation ID: [id number] Transcribed By: Self Edit Transcribed Date: 10/29/2024 11:56 ET us Ramiro Horton DO IMG XR PROCEDURES Final Resul t * XR Chest 2 Views (10/29/2024 11:37 AM EDT) Anatomical Region Laterality Modality Body Radiographic [place] ging 10/29/2024 11:5 7 AM EDT Impressions 10/29/2024 11:58 AM EDT No acute pulmonary disease. Code 22538 -------- FINAL REPORT -------- Dictated By: Marcos Marquez Dictated Date: 10/29/2024 11:57 ET Assigned Physician: Marcos Marquez Reviewed and Electronically Signed By: Marcos Marquez Signed Date: 10/29/2024 11:58 ET Workstation ID: [id number] Transcribed By: Self Edit Transcribed Date: 10/29/2024 [...] resolved. IMPRESSION: No acute pulmonary disease. Code 62138 -------- FINAL REPORT -------- Dictated By: Marcos Marquez Dictated Date: 10/29/2024 11:57 ET Assigned Physician: Marcos Marquez Reviewed and Electronically Signed By: Marcos Marquez Signed Date: 10/29/2024 11:58 ET Workstation ID: [id number] Transcribed By: Self Edit Transcribed Date: 10/29/2024 11:57 ET us Ramiro Horton DO IMG XR PROCEDURES Final Resul t from Last 3 Months Insurance [facility] Care Teams Heat Engineering Teacher Relationship Specialty Start Date End Date Ramiro Horton DO [address] [place] [phone] PCP - General Internal Medicine 05/27/15
--- OUTSIDE RECORDS SUMMARY | 2024-11-18 17:49 | XMS_ITS | Encounter Summary ---
Author Organization [facility] Address [address] [place] [address] Care Team Providers Care [employer] Revenue Officer Name Role Phone Ramiro Horton DO Primary Care Provider [phone] Encounter Details Date Type Department Care Team (Late st Contact Info) Description 08/16/2024 Lab Requisition [facility] - Main Lab [address] [facility] [place] [address] [facility] [address] [place] [id number] Social History Tobacco Use Types Packs/Day Years [...] on filedocumented in this encounter Care Teams [employer] Revenue Officer Relationship Specialty Start Date End Date Ramiro Horton DO [address] [place] [address] PCP - General Internal Medicine 05/27/15 documented as of this encounter
--- OUTSIDE RECORDS SUMMARY | 2024-11-18 17:49 | XMS_ITS | Continuity of Care Document ---
Author Organization [facility] Address [address] [facility] [address] [place] [address] Phone [phone] Social History Type Date Description Comments Sex Unknown Medical Devices Description No Information Available Encounters Description No Information Available Assessments Description No Information Available Plan of Treatment No Information Available Functional Status Description No Information Available Mental Status Description No Information Available Referrals Description No Information Available
[2024-11-18 17:58] LABS: Anion Gap 12 (12-20); Blood Urea Nitrogen 21 mg/dL (9-16); Calcium 9.7 mg/dL (8.4-10.2); Carbon Dioxide 30 mmol/L (22-29); Chloride 97 mmol/L (96-108); Estimated Glomerular Filt Rate > 60; Potassium 4.3 mmol/L (3.3-5.1); Sodium 135 mmol/L (135-145)
[2024-11-18 18:18] LABS: Total Protein Urine Random 15 mg/dL (<12)
[2024-11-19 08:00] LABS: HBS Num1 1.16 mIU/mL (0-7.99); HBc Num1 0.09 S/CO (0.00-0.79); HBsAGNum1 0.36 S/CO (0.00-0.99); Hepatitis B Core Antibody Nonreactive (Nonreactive); Hepatitis B Surface Antigen Negative (Negative); ~Hepatitis B Surface Antibody NONREACTIVE (Nonreactive)
[2024-11-19 10:04] LABS: Complement C3 180 mg/dL (82-185)
[2024-11-19 14:47] LABS: IgA 379 mg/dL (47-310); IgG 1124 mg/dL (600-1640); IgM 91 mg/dL (50-300)
[2024-11-19 22:33] LABS: Anti DNA DS Antibody <1 IU/mL; Myeloperoxidase Antibody <1.0 AI; Proteinase 3 PR3 Antibodies <1.0 AI
[2024-11-24 01:13] LABS: Phospholipase A2 IgG ELISA <4 RU/mL; Phospholipase A2 IgG IFA NEGATIVE (NEGATIVE)
== END 2024-11-18 13:53 | disposition home or self-care (01) ==
LOC: HO.HKASLDS 13:52
PROVIDERS: Visit Provider Internal Medicine Nephrology
DX: N18.31 Chronic kidney disease, stage 3a (principal); E11.21 Type 2 diabetes mellitus with diabetic nephropathy; I10 Essential (primary) hypertension
CPT/HCPCS: 80051; 82310; 82565; 82570; 82784; 83520; 84156; 84520; 86021; 86160; 86225; 86255; 86334; 86335; 86704; 86706; 87340

== ENCOUNTER 2024-12-23 14:15 | Outpatient (AMB) | payer BC, SELFPAY ==
--- OUTSIDE RECORDS SUMMARY | 2024-12-23 14:24 | XMS_ITS | Clinical Summary ---
Author Organization [facility] Address [address] [place] [phone] Phone Care Team Providers Care Visiting Nurse Name Role Phone Ramiro Horton DO Primary Care Provider [phone] Encounters Date Type Department Care Team Description 10/29/2024 11:22 AM EDT - 10/29/2024 11:59 PM EDT Hospital Encounter [facility] [address] [place] [address] Pain Discharge Disposition: Home or Self Care 10/29/2024 10:56 AM EDT - 10/29/2024 11:59 PM EDT Hospital Encounter [facility] [address] [place] [address] Pain Discharge Disposition: Home or Self Care [...] 02/20/2022 11:08 AM EDT Plan of Treatment Upcoming Encounters Date Type Department Care Team (Late st Contact Info) Description 02/21/2025 7:00 AM EDT Ancillary Procedure [facility] [address] [place] [address] Health Maintenance Due Date Last Done Comments [...] complete physical exam (CPE) DM (diabetes mellitus) ([facility]/HCC V24, [facility] V28) Proteinuria HTN (hypertension) Fatty liver Gaudencio encephalopathy Hx of tobacco use, presenting hazards to health BMI 45.0-49.9, adult ([facility] V24, [facility] V28) MICROALBUMIN CREATININE URINE RATIO Routine 11/08/2024 9:38 AM EDT Laboratory tests ordered as part of a complete physical exam (CPE) DM (diabetes mellitus) ([facility]/HCC V24, [facility] V28) Proteinuria HTN (hypertension) Fatty liver Gaudencio encephalopathy Hx of tobacco use, presenting hazards to health BMI 45.0-49.9, adult ([facility]CC V24, [facility] V28) HEMOGLOBIN A1C Routine 11/08/2024 9:38 AM EDT Laboratory tests ordered as part of a complete physical exam (CPE) DM (diabetes mellitus) ([facility]/HCC V24, [facility] V28) Proteinuria HTN (hypertension) Fatty liver Gaudencio encephalopathy Hx of tobacco use, presenting hazards to health BMI 45.0-49.9, adult ([facility] V24, [facility] V28) CBC AND DIFFERENTIAL Routine 11/08/2024 9:38 AM EDT Laboratory tests ordered as part of a complete physical exam (CPE) DM (diabetes mellitus) ([facility]/HCC V24, [facility] V28) Proteinuria HTN (hypertension) Fatty liver Gaudencio encephalopathy Hx of tobacco use, presenting hazards to health BMI 45.0-49.9, adult ([facility] V24, [facility] V28) THYROID STIMULATING HORMONE Routine 11/08/2024 9:38 AM EDT Laboratory tests ordered as part of a complete physical exam (CPE) DM (diabetes mellitus) ([facility]/HCC V24, [facility] V28) Proteinuria HTN (hypertension) Fatty liver Gaudencio encephalopathy Hx of tobacco use, presenting hazards to health BMI 45.0-49.9, adult ([facility] V24, [facility] V28) PROSTATE SPECIFIC ANTIGEN SCREEN Routine 11/08/2024 9:38 AM EDT Laboratory tests ordered as part of a complete physical exam (CPE) DM (diabetes mellitus) ([facility] V24, [facility] V28) Proteinuria HTN (hypertension) Fatty liver Gaudencio encephalopathy Hx of tobacco use, presenting hazards to health BMI 45.0-49.9, adult ([facility] V24, [facility] V28) CREATINE KINASE Routine 11/08/2024 9:38 AM EDT Laboratory tests ordered as part of a complete physical exam (CPE) DM (diabetes mellitus) ([facility] V24, [facility] V28) Proteinuria HTN (hypertension) Fatty liver Gaudencio encephalopathy Hx of tobacco use, presenting hazards to health BMI 45.0-49.9, adult ([facility] V24, [facility] V28) ASPARTATE AMINOTRANSFERASE Routine 11/08/2024 9:38 AM EDT Laboratory tests ordered as part of a complete physical exam (CPE) DM (diabetes mellitus) ([facility] V24, [facility] V28) Proteinuria HTN (hypertension) Fatty liver Gaudencio encephalopathy Hx of tobacco use, presenting hazards to health BMI 45.0-49.9, adult ([facility] V24, [facility] V28) BASIC METABOLIC PANEL Routine 11/08/2024 9:38 AM EDT Laboratory tests ordered as part of a complete physical exam (CPE) DM (diabetes mellitus) ([facility]/HCC V24, [facility] V28) Proteinuria HTN (hypertension) Fatty liver Gaudencio encephalopathy Hx of tobacco use, presenting hazards to health BMI 45.0-49.9, adult ([facility] V24, [facility] V28) ALANINE AMINOTRANSFERASE Routine 9:38 AM EDT Laboratory tests ordered as part of a complete physical exam (CPE) DM (diabetes mellitus) ([facility] V24, [facility] V28) Proteinuria HTN (hypertension) Fatty liver Gaudencio encephalopathy Hx of tobacco use, presenting hazards to health BMI 45.0-49.9, adult ([facility] V24, [facility] V28) LIPID PANEL WITH REFLEX TO DIRECT LDL Routine 11/08/2024 9:38 AM EDT Laboratory tests ordered as part of a complete physical exam (CPE) DM (diabetes mellitus) ([facility] V24, [facility] V28) Proteinuria HTN (hypertension) Fatty liver Gaudencio encephalopathy Hx of tobacco use, presenting hazards to health BMI 45.0-49.9, adult ([facility] V24, [facility] V28) XR SHOULDER 2+ VIEWS LEFT Routine 10/29/2024 11:37 AM EDT Pain XR CHEST 2 VIEWS Routine 10/29/2024 11:3 7 AM EDT Pain from Last 3 Months Results * Prostate specific antigen screen (11/08/2024 9:38 AM EDT) PSA 0.86 0.00 - 4.00 ng/mL LAB CHEMISTRY METHOD 11/08/2024 2:51 PM EDT [facility] Blood Venous blood specimen / Unknown Venipuncture / Unknown 11/08/2024 9:38 AM EDT 11/08/2024 9:38 AM EDT Narrative [facility] - 11/08/2024 2:51 PM EDT The Siemens Advia Centaur Chemiluminescent Immunoassay is used. Results obtained with different assay methods or kits cannot be used interchangeably. Results cannot be interpreted as absolute evidence of the presence or absence of malignant disease. us [facility] LAB BLOOD ORDERABLES Final Resul t [facility] [address] [place] [address], [place] [phone] * (ABNORMAL) Lipid panel with reflex to direct LDL (11/08/2024 9:38 AM EDT) Cholesterol 126 0 - 200 mg/dL LAB CHEMISTRY METHOD 11/08/2024 2:12 PM EDT [facility] Triglycerides 110 0 - 150 mg/dL LAB CHEMISTRY METHOD 11/08/2024 2:12 PM EDT [facility] HDL 38(L) >=40 mg/dL LAB CHEMISTRY METHOD 11/08/2024 2:12 PM EDT [facility] LDL Calculated 66 0 - 100 mg/dL LAB CHEMISTRY METHOD 11/08/2024 2:12 PM EDT [facility] VLDL Cholesterol Norberto 22 mg/dL LAB CHEMISTRY METHOD 11/08/2024 2:12 PM EDT [facility] Non HDL Chol. (LDL+VLDL) 88 <145 mg/dL LAB CHEMISTRY METHOD 11/08/2024 2:12 PM EDT [facility] Chol/HDL Ratio 3.3 0.0 - 4.4 LAB CHEMISTRY METHOD 11/08/2024 2:12 PM EDT [facility] Blood Venous blood specimen / Unknown Venipuncture / Unknown 11/08/2024 9:38 AM EDT 11/08/2024 9:38 AM EDT [facility] LAB BLOOD ORDERABLES Final Resul t [facility] [address] [place] [address], [place] [phone] * (ABNORMAL) CBC auto differential (11/08/2024 9:38 AM EDT) WBC 13.5(H) 4.8 - 10.8 K/mcL LAB HEMETOLOGY METHOD 11/08/2024 11:40 AM EDT [facility] RBC 5.00 4.50 - 5.50 M/mcL LAB HEMETOLOGY METHOD 11/08/2024 11:40 AM [facility] Hemoglobin 13.5 13.5 - 17.5 g/dL LAB HEMETOLOGY METHOD 11/08/2024 11:40 AM [facility] Hematocrit 41.9(L) 42.0 - 54.0 % LAB HEMETOLOGY METHOD 11/08/2024 11:40 AM [facility] MCV 84.1 79.0 - 98.0 FL LAB HEMETOLOGY METHOD 11/08/2024 11:40 AM [facility] MCH 27.1 27.0 - 32.0 pcg LAB HEMETOLOGY METHOD 11/08/2024 11:40 AM [facility] MCHC 32.2 32.0 - 37.0 g/dL LAB HEMETOLOGY METHOD 11/08/2024 11:40 AM [facility] RDW 13.8 11.0 - 15.0 % LAB HEMETOLOGY METHOD 11/08/2024 11:40 AM [facility] Platelets 406(H) 130 - 400 K/mcL LAB HEMETOLOGY METHOD 11/08/2024 11:40 AM [facility] MPV 9.2 7.0 - 11.0 FL LAB HEMETOLOGY METHOD 11/08/2024 11:40 AM [facility] NRBC 0.0 <1.0 % LAB HEMETOLOGY METHOD 11/08/2024 11:40 AM [facility] NRBC Absolute 0.00 <0.10 K/mcL LAB HEMETOLOGY METHOD 11/08/2024 11:40 AM [facility] Neutrophils Relative 73.8 % LAB HEMETOLOGY METHOD 11/08/2024 11:40 AM [facility] Lymphocytes Relative 17.6 % LAB HEMETOLOGY METHOD 11/08/2024 11:40 AM [facility] Monocytes Relative 5.9 % LAB HEMETOLOGY METHOD 11/08/2024 11:40 AM [facility] Eosinophils Relative 1.3 % LAB HEMETOLOGY METHOD 11/08/2024 11:40 AM [facility] Basophils Relative 0.5 % LAB HEMETOLOGY METHOD 11/08/2024 11:40 AM [facility] Immature Granulocytes Relative 0.9 % LAB HEMETOLOGY METHOD 11/08/2024 11:40 AM [facility] Neutrophils Absolute 9.96(H) 1.50 - 7.00 K/mcL LAB HEMETOLOGY METHOD 11/08/2024 11:40 AM [facility] Lymphocytes Absolute 2.38 1.00 - 5.00 K/mcL LAB HEMETOLOGY METHOD 11/08/2024 11:40 AM [facility] Monocytes Absolute 0.79 0.20 - 1.00 K/mcL LAB HEMETOLOGY METHOD 11/08/2024 11:40 AM [facility] Eosinophils Absolute 0.18 0.00 - 0.50 K/mcL LAB HEMETOLOGY METHOD 11/08/2024 11:40 AM [facility] Basophils Absolute 0.07 0.00 - 0.20 K/mcL LAB HEMETOLOGY METHOD 11/08/2024 11:40 AM [facility] Immature Granulocytes Absolute 0.12(H) 0.00 - 0.03 K/mcL LAB HEMETOLOGY METHOD 11/08/2024 11:40 AM [facility] Blood Venous blood specimen / Unknown Venipuncture / Unknown 11/08/2024 9:38 AM EDT 11/08/2024 9:38 AM EDT [facility] LAB BLOOD ORDERABLES Final Resul t Performing Organization Address [facility]/ZIP Co de Phone Number [facility] [address] [place] [address], [place] [phone] * (ABNORMAL) Microalbumin creatinine urine ratio (11/08/2024 9:38 AM EDT) Creatinine, Urine 146.0 mg/dL LAB CHEMISTRY METHOD 11/08/2024 1:48 PM EDT [facility] Microalb, Ur 111.0(H) 0.0 - 29.0 mg/L LAB CHEMISTRY METHOD 11/08/2024 1:48 PM EDT [facility] Microalb/Crea t Ratio 76(H) <30 mg/g creat LAB CHEMISTRY METHOD 11/08/2024 1:48 PM EDT [facility] Urine Urine specimen obtained by clean catch procedure / Unknown Non-blood Collection / Unknown 11/08/2024 9:38 AM EDT 11/08/2024 9:38 AM EDT Constant Contact LAB URINE ORDERABLES Final Resul t Performing Organization Address [facility] de Phone Number [facility] [address] [place] [address], [place] [phone] * Alanine aminotransferase (11/08/2024 9:38 AM EDT) ALT (SGPT) 59 10 - 60 unit/L LAB CHEMISTRY METHOD 11/08/2024 1:49 PM EDT [facility] Blood Venous blood specimen / Unknown Venipuncture / Unknown 11/08/2024 9:38 AM EDT 11/08/2024 9:38 AM EDT Constant Contact LAB BLOOD ORDERABLES Final Resul t Performing Organization Address City/[facility]/ZIP Co de Phone Number [facility] [address] [place] [address], [place] [phone] * Aspartate aminotransferase (11/08/2024 9:38 AM EDT) Pathologist [facility] AST (SGOT) 23 10 - 42 unit/L LAB CHEMISTRY METHOD 11/08/2024 2:12 PM EDT [facility] Blood Venous blood specimen / Unknown Venipuncture / Unknown 11/08/2024 9:38 AM EDT 11/08/2024 9:[address] [facility] Final Resul t [facility] [address] [place] [address], * Thyroid stimulating hormone (11/08/2024 9:38 AM EDT) [facility] TSH 3.26 0.40 - 4.00 mcIU/mL LAB CHEMISTRY METHOD 11/08/2024 2:51 PM EDT [facility] Blood Venous blood specimen / Unknown Venipuncture / Unknown 11/08/2024 9:38 AM EDT 11/08/2024 9:38 AM EDT [facility]an [facility] LAB BLOOD ORDERABLES Final Resul t [facility] [address] [place] [address], * (ABNORMAL) Hemoglobin A1c (11/08/2024 9:38 AM EDT) [facility] Hemoglobin A1C 9.3(H) <6.5 % LAB CHEMISTRY METHOD 11/08/2024 2:31 PM EDT [facility] Mean Bld Glu Estim. 220 mg/dL LAB CHEMISTRY METHOD 11/08/2024 2:31 PM EDT [facility] Blood Venous blood specimen / Unknown Venipuncture / Unknown 11/08/2024 9:38 AM EDT 11/08/2024 9:38 AM EDT Magan [facility] LAB BLOOD ORDERABLES Final Resul t Performing Organization Address [facility]/ZIP Co de Phone Number [facility] [address] [place] [address], [place] [phone] * Creatine kinase (11/08/2024 9:38 AM EDT) Pathologist [facility] Total CK 130 22 - 269 unit/L LAB CHEMISTRY METHOD 11/08/2024 2:12 PM EDT [facility] Blood Venous blood specimen / Unknown Venipuncture / Unknown 11/08/2024 9:38 AM EDT 11/08/2024 9:38 AM EDT Magan Nelson LAB BLOOD ORDERABLES Final Resul t Performing Organization Address [facility]/ZIP Co de Phone Number [facility] [address] [place] [address], [place] [phone] * (ABNORMAL) Basic metabolic panel (11/08/2024 9:38 AM EDT) [facility] Sodium 134 133 - 145 mmol/L LAB CHEMISTRY METHOD 11/08/2024 2:12 PM EDT [facility] Potassium 4.1 3.5 - 5.5 mmol/L LAB CHEMISTRY METHOD 11/08/2024 2:12 PM EDT [facility] Chloride 98 96 - 110 mmol/L LAB CHEMISTRY METHOD 11/08/2024 2:12 PM EDT [facility] CO2 23 21 - 32 mmol/L LAB CHEMISTRY METHOD 11/08/2024 2:12 PM EDT [facility] Anion Gap 13(H) 3 - 11 LAB CHEMISTRY METHOD 11/08/2024 2:12 PM EDT [facility] Glucose 143(H) 70 - 100 mg/dL LAB CHEMISTRY METHOD 11/08/2024 2:12 PM EDT [facility] BUN 25 5 - 25 mg/dL LAB CHEMISTRY METHOD 11/08/2024 2:12 PM EDT [facility] Creatinine 1.01 0.70 - 1.30 mg/dL LAB CHEMISTRY METHOD 11/08/2024 2:12 PM EDT [facility] eGFR 86 >=60 mL/min/1. 73m2 LAB CHEMISTRY METHOD 11/08/2024 2:12 PM EDT [facility] Comment:Calculation based on the??Chronic Kidney Disease Epidemiology Collaboration (CKD-EPI) equation refit??without adjustment for race. BUN/Creatinine Ratio 24.8 LAB CHEMISTRY METHOD 11/08/2024 2:12 PM EDT [facility] Calcium 9.4 8.5 - 10.5 mg/dL LAB CHEMISTRY METHOD 11/08/2024 2:12 PM EDT [facility] Blood Venous blood specimen / Unknown Venipuncture / Unknown 11/08/2024 9:38 AM EDT 11/08/2024 9:38 AM EDT [facility] LAB BLOOD ORDERABLES Final Resul t [facility] [address] [place] [address], * XR Shoulder 2+ Views Left (10/29/2024 11:37 AM EDT) Anatomical Region Laterality Modality Upper Extremities, Shoulder Left Radi ographic Imaging 10/29/2024 11:5 6 AM EDT Impressions 10/29/2024 11:57 AM EDT No acute findings. ??Mild osteoarthritis of the acromioclavicular joint. Code 52955 -------- FINAL REPORT -------- Dictated By: Marcos Marquez Dictated Date: 10/29/2024 11:56 ET Assigned Physician: Marcos Marquez Reviewed and Electronically Signed By: Marcos Marquez Signed Date: 10/29/2024 11:57 ET Workstation ID: [id number] Transcribed By: Self Edit Transcribed Date: 10/29/2024 [...] Mild osteoarthritis of the acromioclavicular joint. Code 46913 -------- FINAL REPORT -------- Dictated By: Marcos Marquez Dictated Date: 10/29/2024 11:56 ET Assigned Physician: Marcos Marquez Reviewed and Electronically Signed By: Marcos Marquez Signed Date: 10/29/2024 11:57 ET Workstation ID: [id number] Transcribed By: Self Edit Transcribed Date: 10/29/2024 11:56 ET us Ramiro Horton DO IMG XR PROCEDURES Final Resul t * XR Chest 2 Views (10/29/2024 11:37 AM EDT) Anatomical Region Laterality Modality Body Radiographic [place] ging 10/29/2024 11:5 7 AM EDT Impressions 10/29/2024 11:58 AM EDT No acute pulmonary disease. Code 75539 -------- FINAL REPORT -------- Dictated By: Marcos Marquez Dictated Date: 10/29/2024 11:57 ET Assigned Physician: Marcos Marquez Reviewed and Electronically Signed By: Marcos Marquez Signed Date: 10/29/2024 11:58 ET Workstation ID: [id number] Transcribed By: Self Edit Transcribed Date: 10/29/2024 [...] resolved. IMPRESSION: No acute pulmonary disease. Code 36866 -------- FINAL REPORT -------- Dictated By: Marcos Marquez Dictated Date: 10/29/2024 11:57 ET Assigned Physician: Marcos Marquez Reviewed and Electronically Signed By: Marcos Marquez Signed Date: 10/29/2024 11:58 ET Workstation ID: [id number] Transcribed By: Self Edit Transcribed Date: 10/29/2024 11:57 ET us Ramiro Horton DO IMG XR PROCEDURES Final Resul t from Last 3 Months Insurance [facility] Care Teams Visiting Nurse Relationship Specialty Start Date End Date Ramiro Horton DO [address] [place] [phone] PCP - General Internal Medicine 05/27/15
--- NOTE | 2024-12-23 14:26 | HO.NEPHOV_ITS ---
Vital Signs 12/23/24 14:28 Height 5 ft 9 in Weight 357 lb 6 oz BMI 52.8 BP 122/80 Blood Pressure Location Lt brachial Position Sitting Pulse 80 Pulse Source Pulse Oximeter Pulse Oximetry (%) 90 L Oxygen Delivery Method Room Air Intake Visit Reasons: 1 Month-Conf [place] Worker Helper Required: No Accompanied by: Self / Same As Patient Allergies No Known Allergies Allergy (Verified 12/23/24 14:27) HPI Comments Details: I had the pleasure of seeing Kodi in follow up for proteinuria on a backdrop of diabetes and hypertension. He has high BMI. He has been started on Mounjaro recently. His blood sugar is better with medication adjustment. He does not check his blood sugar and blood pressure very regularly. He has history of drug use in the past but has not had any since 2014. He is on Jardiance.He denies taking excessive nonsteroidal anti-inflammatories. He is on ARB. He used to take NSAIDs . He does not have any flank pain, hematuria, froth or foam in the urine, epistaxis, orthostatic symptoms, nausea, vomiting, diarrhea, shortness of breath, paroxysmal nocturnal dyspnea, orthopnea, recurrent sinusitis, joint swellings or any other systemic symptoms. His recent serum creatinine is normal [facility] Medical History (Updated 11/18/24 @ 14:48 by Melvin Greenberg MD) Gaudencio's thyroiditis Fatty liver Liver abscess Portal vein thrombosis Tubular adenoma Abdominal aortic ectasia Abnormal LFTs (liver function tests) ROGER (obstructive sleep apnea) Hypertension Diabetes mellitus Surgical History History of appendectomy Family History Father Diabetes Dementia Social History Alcohol intake: former Patient Tobacco Use Status: Former Tobacco user Review of Systems Const All systems reviewed & are unremarkable except as noted in HPI and below Physical Exam Vital Signs: Last Vital Signs Pulse 80 12/23/24 14:28 BP 122/80 12/23/24 14:28 Pulse Ox 90 L 12/23/24 14:28 Oxygen Delivery Method Room Air 12/23/24 14:28 BMI result Body Mass Index 52.8 Const General: comfortable and no acute distress Orientation/consciousness: patient oriented x3 HEENT Head: Yes normocephalic Mouth: Normal oral and palatal mucosa present Eyes EOM: EOMs intact bilaterally Neck Neck: Yes supple Resp Auscultation: clear to auscultation bilaterally Cardio Jugular venous distension: no JVD Rate: regular rate GI Palpation (GI): Soft to palpation Auscultation: normal bowel sounds General: Yes no CVA tenderness Back/Spine/Pelvis Back: no CVA tenderness Skin General skin exam: no rashes or lesions noted Neuro General: patient oriented x3 and moves all extremities Extrem General: Yes no pedal edema Results Reviewed Nephrology Results: Sodium 135 mmol/L (135-145) 11/18/24 Potassium 4.3 mmol/L (3.3-5.1) 11/18/24 Chloride 97 mmol/L (96-108) 11/18/24 Carbon Dioxide 30 mmol/L (22-29) H 11/18/24 BUN 21 mg/dL (9-16) H 11/18/24 Creatinine 0.95 mg/dL (0.5-1.4) 11/18/24 Calcium 9.7 mg/dL (8.4-10.2) 11/18/24 Urine Creatinine 75.20 mg/dL 11/18/24 Protein/Creatinin Ratio 0.20 (<0.2) 11/18/24 Assessment & Plan Assessment & Plan (1) Diabetic nephropathy: Code(s): E11.21 - Type 2 diabetes mellitus with diabetic nephropathy Category: Medical Qualifiers: Diabetes mellitus type: type 2 Qualified Code(s): E11.21 - Type 2 diabetes mellitus with diabetic nephropathy (2) Hypertension: Code(s): I10 - Essential (primary) hypertension Category: Medical Qualifiers: Hypertension type: primary hypertension Qualified Code(s): I10 - Essential (primary) hypertension Plan Kodi has 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 Differential diagnosis includes includes secondary focal and segmental glomerul osclerosis. His urine output is good. He is on ARB and SGLT2 inhibitor. His extensive workup so far has been negative. He does not need a renal biopsy . I encouraged him to avoid nonsteroidal anti-inflammatories and maintain good hydration. I did not make any medication changes. Further management is pending evolving data. Answered all questions and follow-up appointment was given. Orders: Orders Electrolytes 6 Months E11.21 - Type 2 diabetes mellitus with diabetic nephropathy, I10 - Essential (primary) hypertension Protein Creatinine Ratio, Ur 6 Months E11. - Type 2 diabetes mellitus with diabetic nephropathy, I10 - Essential (primary) hypertension Creatinine 6 Months E11. - Type 2 diabetes mellitus with diabetic nephropathy, I10 - Essential (primary) hypertension Blood Urea Nitrogen 6 Months E11. - Type 2 diabetes mellitus with diabetic nephropathy, I10 - Essential (primary) hypertension Coding Level of Care Code Est Pt Level 4 (73154) Diagnoses Diabetic nephropathy associated with type 2 diabetes mellitus Diabetes mellitus type: type 2 Primary hypertension I10 Hypertension type: primary hypertension
[2024-12-23 14:28] VITALS: BP 122/80; PULSE 80; O2SAT 90; BMI 52.8
== END 2024-12-23 14:50 | disposition home or self-care (01) ==
LOC: HO.HKAS 14:16
PROVIDERS: Visit Provider Internal Medicine Nephrology
DX: E11.21 Type 2 diabetes mellitus with diabetic nephropathy (principal); I10 Essential (primary) hypertension
CPT/HCPCS: 99214

== ENCOUNTER → 2024-12-23 14:15 | Outpatient (BNVA) | payer BC, SELFPAY | PROVIDERS: Visit Provider Internal Medicine Nephrology ==

== ENCOUNTER 2025-06-27 14:12 | Outpatient (REF) | payer BC, SELFPAY ==
--- OUTSIDE RECORDS SUMMARY | 2025-06-27 19:11 | XMS_ITS | Continuity of Care Document ---
Author Organization [facility] Address [address] [facility] [address] [place] [address] Phone [phone] Social History Type Date Description Comments Sex Male Sex Unknown Medical Devices Description No Information Available Encounters Description No Information Available Assessments Description No Information Available Plan of Treatment No Information Available Functional Status Description No Information Available Mental Status Description No Information Available Referrals Description No Information Available
--- OUTSIDE RECORDS SUMMARY | 2025-06-27 19:11 | XMS_ITS | Encounter Summary ---
Author Organization [facility] Address [address] [place] [address] Care Team Providers Care Botany Laboratory Assistant Name Role Phone Ramiro Horton DO Primary Care Provider [phone] Encounter Details Date Type Department Care Team (Late st Contact Info) Description 08/16/2024 Lab Requisition [facility] - Main Lab [address] [facility] [place] [address] [address] [place] [address] Social History Tobacco Use Types Packs/Day Years [...] on filedocumented in this encounter Care Teams Botany Laboratory Assistant Relationship Specialty Start Date End Date Ramiro Horton DO [address] [place] [address] PCP - General Internal Medicine 05/27/15 documented as of this encounter
--- OUTSIDE RECORDS SUMMARY | 2025-06-27 19:11 | XMS_ITS | Clinical Summary ---
Author Organization [address] Address [address] [place] [phone] Phone Care Team Providers Care Hairmasters Manager Name Role Phone Ramiro Horton DO Primary Care Provider [phone] Encounters Date Type Department Care Team Description 03/28/2025 Telephone [facility] [address] [place] [phone] Provider, Not In System from Last 3 Months Social History Tobacco [...] - Inhaled Oxygen Concentration - - Weight 161 kg (354 lb) 02/21/2025 7:46 AM EDT Height 170.2 cm (5' 7 ) 02/21/2025 7:46 AM EDT Body Mass Index 55.44 02/21/2025 7:46 AM EDT Plan of Treatment Health Maintenance Due Date Last Done Comments Colorectal Cancer Screening: Colonoscopy 1966 Diabetes: Annual Foot Exam 1976 Diabetes: Annual Retina Eye Exam 1976 DTaP,Tdap,and Td Vaccines (1 - Tdap) 1985 Hepatitis B Vaccines (1 of 3 - 19+ 3-dose series) 1985 Pneumococcal Vaccine: 50+ Years (1 of 2 - PCV) 1985 RSV Immunization Adult Patients (1 - Risk 50-74 years 1-dose series) 2016 Zoster Vaccines (1 of 2) 2016 HIV Screening 07/02/2022 Hepatitis C Screening 07/02/2022 Social Influencers of Health Screening 07/02/2022 Depression Screening 08/04/2024 COVID-19 Vaccine ( season) 2025 01/03/2021, 12/05/2020 Diabetes: Annual Urine Albumin-Creatinine Ratio (uACR) 11/08/2025 11/08/2024 Diabetes: Blood Sugar Control Test (HGBA1C) 11/21/2025 05/23/2025, 02/07/2025, 11/08/2024, Additional history exists Diabetes: Annual GFR (Glomerular Filtration Rate) 05/23/2026 05/23/2025, 02/07/2025, 11/08/2024, Additional history exists Hypertension/CHF/CAD Annual BMP Blood Test 05/23/2026 05/23/2025, 02/07/2025, 11/08/2024, Additional history exists Cholesterol Screening (Lipid Panel) 11/08/2029 11/08/2024 Influenza Vaccine Completed 05/23/2025 HIB Vaccines Aged Out No longer eligi [...] 20 months Aged Out No longer eligible based on patient's age to complete this topic Varicella Vaccines Aged Out No longer eligible based on patient's age to complete this topic Procedures Procedure Name Priority Date/Time Associated Diagnosis Comments HEMOGLOBIN A1C Routine 05/23/2025 10:47 AM EDT DM (diabetes mellitus) (CMS/HCC V24, CMS/[facility] V28) HTN (hypertension) HDL deficiency ROGER (obstructive sleep apnea) BASIC METABOLIC PANEL Routine 05/23/2025 10:47 AM EDT DM (diabetes mellitus) ([facility] V24, [facility] V28) HTN (hypertension) HDL deficiency ROGER (obstructive sleep apnea) MICROALBUMIN CREATININE URINE RATIO Routine 11/08/2024 9:38 AM EDT Laboratory tests ordered as part of a complete physical exam (CPE) DM (diabetes mellitus) ([facility] V24, [facility] V28) Proteinuria HTN (hypertension) Fatty liver Gaudencio encephalopathy Hx of tobacco use, presenting hazards to health BMI 45.0-49.9, adult ([facility] V24, [facility] V28) LIPID PANEL WITH REFLEX TO DIRECT LDL Routine 11/08/2024 9:38 AM EDT Laboratory tests ordered as part of a complete physical exam (CPE) DM (diabetes mellitus) ([facility] V24, [facility] V28) Proteinuria HTN (hypertension) Fatty liver Gaudencio encephalopathy Hx of tobacco use, presenting hazards to health BMI 45.0-49.9, adult ([facility] V24, [facility] V28) from Last 3 Months or Most Recently Relevant to Health Maintenance Results * (ABNORMAL) Hemoglobin A1c (05/23/2025 10:47 AM EDT) Hemoglobin A1C 8.1(H) <6.5 % LAB CHEMISTRY METHOD 05/23/2025 10:54 PM EDT [facility] Mean Bld Glu Estim. 186 mg/dL LAB CHEMISTRY METHOD 05/23/2025 10:54 PM EDT [facility] Blood Venous blood specimen / Unknown Venipuncture / Unknown 05/23/2025 10:47 AM EDT 05/23/2025 10:47 AM EDT us Magan High LAB BLOOD ORDERABLES Final Resul t [facility] [address] [place] [address], [place] [phone] * (ABNORMAL) Basic metabolic panel (05/23/2025 10:47 AM EDT) Sodium 135 133 - 145 mmol/L LAB CHEMISTRY METHOD 05/23/2025 5:[address] [facility] Potassium 3.9 3.5 - 5.5 mmol/L LAB CHEMISTRY METHOD 05/23/2025 5:[address] [facility] Chloride 100 96 - 110 mmol/L LAB CHEMISTRY METHOD 05/23/2025 5:[address] [facility] CO2 28 21 - 32 mmol/L LAB CHEMISTRY METHOD 05/23/2025 5:[address] [facility] Anion Gap 7 3 - 11 LAB CHEMISTRY METHOD 05/23/2025 5:[address] [facility] Glucose 128(H) 70 - 100 mg/dL LAB CHEMISTRY METHOD 05/23/2025 5:[address] [facility] BUN 21 5 - 25 mg/dL LAB CHEMISTRY METHOD 05/23/2025 5:[address] [facility] Creatinine 1.16 0.70 - 1.30 mg/dL LAB CHEMISTRY METHOD 05/23/2025 5:[address] [facility] eGFR 73 >=60 mL/min/1. 73m2 LAB CHEMISTRY METHOD 05/23/2025 5:[address] [facility] Comment:Calculation based on the Chronic Kidney Disease Epidemiology Collaboration (CKD-EPI) equation refit without adjustment for race. BUN/Creatinine Ratio 18.1 LAB CHEMISTRY METHOD 05/23/2025 5:[address] [facility] Calcium 9.0 8.5 - 10.5 mg/dL LAB CHEMISTRY METHOD 05/23/2025 5:[address] [facility] Blood Venous blood specimen / Unknown Venipuncture / Unknown 05/23/2025 10:47 AM EDT 05/23/2025 10:47 AM EDT Magan Anila LAB BLOOD ORDERABLES Final Resul t [facility] [address] [place] [address], [place] [phone] * (ABNORMAL) Lipid panel with reflex to direct LDL (11/08/2024 9:38 AM EDT) Cholesterol 126 0 - 200 mg/dL LAB CHEMISTRY METHOD 11/08/2024 2:12 PM EDT [facility] Triglycerides 110 0 - 150 mg/dL LAB CHEMISTRY METHOD 11/08/2024 2:12 PM EDT [facility] HDL 38(L) >=40 mg/dL LAB CHEMISTRY METHOD 11/08/2024 2:12 PM EDT [facility] LDL Calculated 66 0 - 100 mg/dL LAB CHEMISTRY METHOD 11/08/2024 2:12 PM EDT [facility] VLDL Cholesterol Norberto 22 mg/dL LAB CHEMISTRY METHOD 11/08/2024 2:12 PM EDT [facility] Non HDL Chol. (LDL+VLDL) 88 <145 mg/dL LAB CHEMISTRY METHOD 11/08/2024 2:12 PM EDT [facility] Chol/HDL Ratio 3.3 0.0 - 4.4 LAB CHEMISTRY METHOD 11/08/2024 2:12 PM EDT [facility] Blood Venous blood specimen / Unknown Venipuncture / Unknown 11/08/2024 9:38 AM EDT 11/08/2024 9:38 AM EDT Magan Anila LAB BLOOD ORDERABLES Final Resul t [facility] [address] [place] [address], [place] [phone] * (ABNORMAL) Microalbumin creatinine urine ratio (11/08/2024 9:38 AM EDT) Creatinine, Urine 146.0 mg/dL LAB CHEMISTRY METHOD 11/08/2024 1:48 PM EDT [facility] Microalb, Ur 111.0(H) 0.0 - 29.0 mg/L LAB CHEMISTRY METHOD 11/08/2024 1:48 PM EDT [facility] Microalb/Crea t Ratio 76(H) <30 mg/g creat LAB CHEMISTRY METHOD 11/08/2024 1:48 PM EDT [facility] Urine Urine specimen obtained by clean catch procedure / Unknown Non-blood Collection / Unknown 11/08/2024 9:38 AM EDT 11/08/2024 9:38 AM EDT us Magan High LAB URINE ORDERABLES Final Resul t [facility] [address] [place] [address], from Last 3 Months or Most Recently Relevant to Health Maintenance Insurance [facility] Care Teams Hairmasters Manager Relationship Specialty Start Date End Date Ramiro Horton DO [address] [place] [phone] PCP - General Internal Medicine 05/27/15
[2025-06-27 19:13] LABS: Anion Gap 13 (12-20); Blood Urea Nitrogen 23 mg/dL (9-16); Carbon Dioxide 28 mmol/L (22-29); Chloride 100 mmol/L (96-108); Estimated Glomerular Filt Rate > 60; Potassium 4.2 mmol/L (3.3-5.1); Sodium 137 mmol/L (135-145)
[2025-06-27 19:18] LABS: Protein/Creatinine Ratio, Ur 0.15 (<0.2); Total Protein Urine Random 8 mg/dL (<12)
== END 2025-06-27 14:13 | disposition home or self-care (01) ==
LOC: HO.HKASLDS 14:12
PROVIDERS: PCP Internal Medicine; Visit Provider Internal Medicine Nephrology
DX: I10 Essential (primary) hypertension (principal); E11.21 Type 2 diabetes mellitus with diabetic nephropathy
CPT/HCPCS: 36415; 80051; 82565; 82570; 84156; 84520

== ENCOUNTER 2025-06-28 11:21 | Outpatient (AMB) | payer BC, SELFPAY ==
--- NOTE | 2025-06-28 11:25 | HO.NEPHOV_ITS ---
Vital Signs 06/28/25 11:27 Height 5 ft 9 in Weight 354 lb 2 oz BMI 52.3 BP 122/70 Blood Pressure Location Lt brachial Position Sitting Pulse 87 Pulse Source Pulse Oximeter Pulse Oximetry (%) 91 L Oxygen Delivery Method Room Air Intake Visit Reasons: 6 mo follow up-Conf Epic [facility] Specialists Required: No Accompanied by: Self / Same As Patient Allergies No Known Allergies Allergy (Verified 06/28/25 11:27) HPI Comments Details: I had the pleasure of seeing Kodi in follow up for H/O proteinuria on a backdrop of diabetes and hypertension. He has high BMI. He has been started on Mounjaro recently. His blood sugar is better with medication adjustment. He does not check his blood sugar and blood pressure very regularly. He has history of drug use in the past but has not had any since 2014. He is on Jardiance.He denies taking excessive nonsteroidal anti-inflammatories. He is on ARB. He used to take NSAIDs . He does not have any flank pain, hematuria, froth or foam in the urine, epistaxis, orthostatic symptoms, nausea, vomiting, diarrhea, shortness of breath, paroxysmal nocturnal dyspnea, orthopnea, recurrent sinusitis, joint swellings or any other systemic symptoms. His recent serum creatinine is stable [facility] Medical History (Updated 11/18/24 @ 14:48 by Melvin Greenberg MD) Gaudencio's thyroiditis Fatty liver Liver abscess Portal vein thrombosis Tubular adenoma Abdominal aortic ectasia Abnormal LFTs (liver function tests) ROGER (obstructive sleep apnea) Hypertension Diabetes mellitus Surgical History History of appendectomy Family History Father Diabetes Dementia Social History Alcohol intake: former Patient Tobacco Use Status: Former Tobacco user Review of Systems Const All systems reviewed & are unremarkable except as noted in HPI and below Physical Exam Vital Signs: Last Vital Signs Pulse 87 06/28/25 11:27 BP 122/70 06/28/25 11:27 Pulse Ox 91 L 06/28/25 11:27 Oxygen Delivery Method Room Air 06/28/25 11:27 BMI result Body Mass Index 52.3 Const General: comfortable and no acute distress Orientation/consciousness: patient oriented x3 HEENT Head: Yes normocephalic Mouth: Normal oral and palatal mucosa present Eyes EOM: EOMs intact bilaterally Neck Neck: Yes supple Resp Auscultation: clear to auscultation bilaterally Cardio Jugular venous distension: no JVD Rate: regular rate GI Palpation (GI): Soft to palpation Auscultation: normal bowel sounds General: Yes no CVA tenderness Back/Spine/Pelvis Back: no CVA tenderness Skin General skin exam: no rashes or lesions noted Neuro General: patient oriented x3 and moves all extremities Extrem General: Yes no pedal edema Results Reviewed Nephrology Results: Sodium, (135-145) 137 mmol/L 06/27/25 Potassium, (3.3-5.1) 4.2 mmol/L 06/27/25 Chloride, (96-108) 100 mmol/L 06/27/25 Carbon Dioxide, (22-29) 28 mmol/L 06/27/25 BUN, (9-16) 23 mg/dL H 06/27/25 Creatinine, (0.5-1.4) 1.07 mg/dL 06/27/25 Calcium, (8.4-10.2) 9.7 mg/dL 11/18/24 Urine Creatinine 52.72 mg/dL 06/27/25 Protein/Creatinin Ratio, (<0.2) 0.15 06/27/25 Assessment & Plan Assessment & Plan (1) CKD stage 3a, GFR 45-59 ml/min: Code(s): N18.31 - Chronic kidney disease, stage 3a Category: Medical (2) Diabetic nephropathy: Code(s): E11.21 - Type 2 diabetes mellitus with diabetic nephropathy Category: Medical Qualifiers: Diabetes mellitus type: type 2 Qualified Code(s): E11.21 - Type 2 diabetes mellitus with diabetic nephropathy (3) Hypertension: Code(s): I10 - Essential (primary) hypertension Category: Medical Qualifiers: Hypertension type: primary hypertension Qualified Code(s): I10 - Essential (primary) hypertension Plan Kodi has 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 Differential diagnosis includes includes secondary focal and segmental glomerul osclerosis. His urine output is good. He is on ARB and SGLT2 inhibitor. His extensive workup so far has been negative. He does not need a renal biopsy . I encouraged him to avoid nonsteroidal anti-inflammatories and maintain good hydration. I did not make any medication changes. Further management is pending evolving data. Answered all questions and follow-up appointment was given. Orders: Orders Electrolytes 7 Months E11.21 - Type 2 diabetes mellitus with diabetic nephropathy, I10 - Essential (primary) hypertension, N18.31 - Chronic kidney disease, stage 3a Creatinine 7 Months E11.21 - Type 2 diabetes mellitus with diabetic nephropathy, I10 - Essential (primary) hypertension, N18.31 - Chronic kidney disease, stage 3a Blood Urea Nitrogen 7 Months E11.21 - Type 2 diabetes mellitus with diabetic nephropathy, I10 - Essential (primary) hypertension, N18.31 - Chronic kidney disease, stage 3a Protein Creatinine Ratio, Ur 7 Months E11.21 - Type 2 diabetes mellitus with diabetic nephropathy, I10 - Essential (primary) hypertension, N18.31 - Chronic kidney disease, stage 3a Coding Level of Care Code Est Pt Level 4 (88142) Diagnoses CKD stage 3a, GFR 45-59 ml/min N18.31 Diabetic nephropathy associated with type 2 diabetes mellitus E11.21 Diabetes mellitus type: type 2 Primary hypertension I10 Hypertension type: primary hypertension
[2025-06-28 11:27] VITALS: BP 122/70; PULSE 87; O2SAT 91; BMI 52.3
--- OUTSIDE RECORDS SUMMARY | 2025-06-28 15:02 | XMS_ITS | Clinical Summary ---
Author Organization [address] Address [address] [place] [phone] Phone Care Team Providers Care Thread Cutter Tender Name Role Phone Ramiro Horton DO Primary Care Provider [phone] Encounters Date Type Department Care Team Description 03/28/2025 Telephone [facility] [address] [place] [address] Provider, Not In System from Last 3 [...] AM EDT DM (diabetes mellitus) (CMS/HCC V24, CMS/[facility] V28) HTN (hypertension) HDL deficiency ROGER (obstructive sleep apnea) BASIC METABOLIC PANEL Routine 05/23/2025 10:47 AM EDT DM (diabetes mellitus) ([facility] [place], [facility] V28) HTN (hypertension) HDL deficiency ROGER (obstructive sleep apnea) MICROALBUMIN CREATININE URINE RATIO Routine 11/08/2024 9:38 AM EDT Laboratory tests ordered as part of a complete physical exam (CPE) DM (diabetes mellitus) ([facility] V24, [facility] V28) Proteinuria HTN (hypertension) Fatty liver Gaudencio encephalopathy Hx of tobacco use, presenting hazards to health BMI 45.0-49.9, adult ([facility] V24, [facility] V28) LIPID PANEL WITH REFLEX TO DIRECT LDL Routine 11/08/2024 9:38 AM EDT Laboratory tests ordered as part of a complete physical exam (CPE) DM (diabetes mellitus) ([facility] V24, [facility] V28) Proteinuria HTN (hypertension) Fatty liver Gaudencio encephalopathy Hx of tobacco use, presenting hazards to health BMI 45.0-49.9, adult ([facility] V24, [facility] V28) from Last 3 Months or Most Recently Relevant to Health Maintenance Results * (ABNORMAL) Hemoglobin A1c (05/23/2025 10:47 AM EDT) Hemoglobin A1C 8.1(H) <6.5 % LAB CHEMISTRY METHOD 05/23/2025 10:54 PM EDT [facility] Mean Bld Glu Estim. 186 mg/dL LAB CHEMISTRY METHOD 05/23/2025 10:54 PM EDT [facility] Blood Venous blood specimen / Unknown Venipuncture / Unknown 05/23/2025 10:47 AM EDT 05/23/2025 10:47 AM EDT us Magan High LAB BLOOD ORDERABLES Final Resul t [facility] [address] [place] [address], [place] [phone] * (ABNORMAL) Basic metabolic panel (05/23/2025 10:47 AM EDT) Sodium 135 133 - 145 mmol/L LAB CHEMISTRY METHOD 05/23/2025 5:49 PM [facility] Potassium 3.9 3.5 - 5.5 mmol/L LAB CHEMISTRY METHOD 05/23/2025 5:49 PM [facility] Chloride 100 96 - 110 mmol/L LAB CHEMISTRY METHOD 05/23/2025 5:49 PM [facility] CO2 28 21 - 32 mmol/L LAB CHEMISTRY METHOD 05/23/2025 5:49 PM [facility] Anion Gap 7 3 - 11 LAB CHEMISTRY METHOD 05/23/2025 5:49 PM [facility] Glucose 128(H) 70 - 100 mg/dL LAB CHEMISTRY METHOD 05/23/2025 5:49 PM [facility] BUN 21 5 - 25 mg/dL LAB CHEMISTRY METHOD 05/23/2025 5:49 PM [facility] Creatinine 1.16 0.70 - 1.30 mg/dL LAB CHEMISTRY METHOD 05/23/2025 5:49 PM [facility] eGFR 73 >=60 mL/min/1. 73m2 LAB CHEMISTRY METHOD 05/23/2025 5:49 PM [facility] Comment:Calculation based on the Chronic Kidney Disease Epidemiology Collaboration (CKD-EPI) equation refit without adjustment for race. BUN/Creatinine Ratio 18.1 LAB CHEMISTRY METHOD 05/23/2025 5:49 PM [facility] Calcium 9.0 8.5 - 10.5 mg/dL LAB CHEMISTRY METHOD 05/23/2025 5:49 PM [facility] Blood Venous blood specimen / Unknown Venipuncture / Unknown 05/23/2025 10:47 AM EDT 05/23/2025 10:47 AM EDT Magan Anila LAB BLOOD ORDERABLES Final Resul t [facility] [address] [place] [address], [place] [phone] * (ABNORMAL) Lipid panel with reflex to direct LDL (11/08/2024 9:38 AM EDT) Cholesterol 126 0 - 200 mg/dL LAB CHEMISTRY METHOD 11/08/2024 2:12 PM EDT [facility] Triglycerides 110 0 - 150 mg/dL LAB CHEMISTRY METHOD 11/08/2024 2:12 PM EDT [facility] HDL 38(L) >=40 mg/dL LAB CHEMISTRY METHOD 11/08/2024 2:12 PM EDT [facility] LDL Calculated 66 0 - 100 mg/dL LAB CHEMISTRY METHOD 11/08/2024 2:12 PM EDT [facility] VLDL Cholesterol Norberto 22 mg/dL LAB CHEMISTRY METHOD 11/08/2024 2:12 PM EDT [facility] Non HDL Chol. (LDL+VLDL) 88 <145 mg/dL LAB CHEMISTRY METHOD 11/08/2024 2:12 PM EDT [facility] Chol/HDL Ratio 3.3 0.0 - 4.4 LAB CHEMISTRY METHOD 11/08/2024 2:12 PM EDT [facility] Blood Venous blood specimen / Unknown Venipuncture / Unknown 11/08/2024 9:38 AM EDT 11/08/2024 9:38 AM EDT Magan Anila LAB BLOOD ORDERABLES Final Resul t [facility] [address] [place] [address], [place] [phone] * (ABNORMAL) Microalbumin creatinine urine ratio (11/08/2024 9:38 AM EDT) Creatinine, Urine 146.0 mg/dL LAB CHEMISTRY METHOD 11/08/2024 1:48 PM EDT [facility] Microalb, Ur 111.0(H) 0.0 - 29.0 mg/L LAB CHEMISTRY METHOD 11/08/2024 1:48 PM EDT [facility] Microalb/Crea t Ratio 76(H) <30 mg/g creat LAB CHEMISTRY METHOD 11/08/2024 1:48 PM EDT [facility] Urine Urine specimen obtained by clean catch procedure / Unknown Non-blood Collection / Unknown 11/08/2024 9:38 AM EDT 11/08/2024 9:38 AM EDT us Magan High LAB URINE ORDERABLES Final Resul t [facility] [address] [place] [address], from Last 3 Months or Most Recently Relevant to Health Maintenance Insurance [facility] Care Teams Thread Cutter Tender Relationship Specialty Start Date End Date Ramiro Horton DO [address] [place] [phone] PCP - General Internal Medicine 05/27/15
--- OUTSIDE RECORDS SUMMARY | 2025-06-28 15:02 | XMS_ITS | Continuity of Care Document ---
Author Organization [facility] Address [address] [facility] [address] [facility] [address] [place] [address] Phone [phone] Social History Type Date Description Comments Sex Male Sex Unknown Medical Devices Description No Information Available Encounters Description No Information Available Assessments Description No Information Available Plan of Treatment No Information Available Functional Status Description No Information Available Mental Status Description No Information Available Referrals Description No Information Available
--- OUTSIDE RECORDS SUMMARY | 2025-06-28 15:02 | XMS_ITS | Encounter Summary ---
Author Organization [facility] Address [address] [place] [address] Care Team Providers Care Human Services Instructor Name Role Phone Ramiro Horton DO Primary Care Provider [phone] Encounter Details Date Type Department Care Team (Late st Contact Info) Description 08/16/2024 Lab Requisition [facility] - Main Lab [address] [facility] [place] [address] [facility] [address] [place] [phone] Social History Tobacco Use Types Packs/Day Years [...] on filedocumented in this encounter Care Teams Human Services Instructor Relationship Specialty Start Date End Date Ramiro Horton DO [address] [place] [phone] PCP - General Internal Medicine 05/27/15 documented as of this encounter
== END 2025-06-28 13:42 | disposition home or self-care (01) ==
LOC: HO.HKAS 11:22
PROVIDERS: Visit Provider Internal Medicine Nephrology
DX: N18.31 Chronic kidney disease, stage 3a (principal); E11.21 Type 2 diabetes mellitus with diabetic nephropathy; I10 Essential (primary) hypertension
CPT/HCPCS: 99214